=== PATIENT | male | born 1980 | race Caucasian/White ===

== ENCOUNTER 2017-09-07 15:03 | Emergency (ER) | payer MEDICAID, SELFPAY ==
[2017-09-07 16:33] VITALS: BP 167/93; PULSE 91; RESP 20; TEMP 36.7; O2SAT 98; BMI 41.3
--- NOTE | 2017-09-07 16:36 | HMH.EDUTC ---
[facility] [place] Clinical Impression: Viral upper respiratory tract infection with cough Disposition: Home, Self-Care Condition on Discharge: Good Instructions: DI for Viral Upper Respiratory Infection -- Adult Additional Instructions: * Monitor Temp. Tylenol and/or Ibuprofen as needed. ER if fever is no less than 101 despite alternating Tylenol and Ibuprofen * Encourage fluids, water, Gatorade, powerade, pedialyte if infant/toddler/or child * Warm salt water gargles for throat irritation *Warm fluids *Sore throat lozenges *Sleep elevated *humidifier or vaporizer Lots of rest Increase fluids, water, Gatorade, powerade Follow up IMMEDIATELY for new or worsening of symptoms OR no noticeable improvement over the next 48-72 hours. 911 immediately for any life threatening symptoms such as chest pain or difficulty breathing Prescriptions: Dextromethorphan Polistirex [Delsym] 10 ml PO Q12H PRN #200 bhaskar.er.12h PRN Reason: Cough Referrals: Rodrigue Yoder MD [Primary Care Provider] - Time of Disposition: 16:59 Medical Decision Making - Medical Records Medical records reviewed: Yes: I reviewed the patient's medical records. Vital Signs: 09/07/17 16:33 Temperature 98.1 F Temperature Source Temporal Artery Scan Pulse Rate [Right Brachial] 91 H Respiratory Rate 20 Blood Pressure [Right Arm] 167/93 Blood Pressure Mean [Right Arm] 117 Blood Pressure Source [Right Arm] Automatic Cuff Blood Pressure Position [Right Arm] Sitting 02 Sat by Pulse Oximetry 98 Oxygen Delivery Method Room Air - Lab Data Lab Results 09/07/17 16:46: Influenza Type A Ag Negative, Influenza Type B Ag Negative - Ricco Inquiry Pt receiving controlled substance: No Ricco was queried for this patient: No [facility] [place] - General Stated complaint: gever umanzor sore throat Mode of Arrival: Family Vehicle Source of Information: Patient Limitations: No Limitations Description of Symptoms (Recalled from Triage Doc. by RN): FEVER, COUGH, CONGESTION HEENT Symptoms (Recalled from RN notes): No Resp Symptoms (Recalled from RN notes): Yes (COUGH, CONGESTION) Skin Symptoms (Recalled from RN notes): No MS Symptoms (Recalled from RN notes): No Functional Status (Recalled from RN notes): NA - History of Present Illness Provider Complaint: Patient state that he has has fever, headaches, body aches and chills State that he has been exposed to the flu State that his daughter has been sick too and thinks they all may have the flu State that symptoms began yesterday and have continued to get worse - Related Data Previous Rx's Medication Instructions Recorded Dextromethorphan Polistirex 10 ml PO Q12H PRN #200 [email or web address].er.12h 09/07/17 [Delsym] Allergies Allergy/AdvReac Type Severity Reaction Status Date / Time codeine [CODEINE] Allergy Unknown -- Verified 09/07/17 15:18 Penicillins [PENICILLINS] Allergy Unknown -- Verified 09/07/17 15:18 - Worker's Comp Is this a Worker's Comp case?: No [facility] History I have reviewed the patient's past medical history: Yes - *Social History Smoking Status: Never smoker Alcohol Intake: current Alcohol Intake Frequency:: a few times a week - Psychiatric History Expresses thoughts of harming self/others: None Suicide Plan Description: No Plan ROS Obtained: Yes All systems reviewed & no additional complaints - Constitutional Constitutional: Reports chills, Reports fatigue, Reports fever(s) - ENT Ears, Nose, Mouth, and Throat: Reports sinus pain, Reports sore throat - Respiratory Respiratory: Yes cough Physical Exam - General General appearance: alert, in no apparent distress - ENT ENT exam: Present: normal exam, normal oropharynx, mucous membranes moist, TM's normal bilaterally, normal external ear exam - Respiratory Respiratory exam: Present: normal lung sounds bilaterally. Absent: respiratory distress - Cardiovascular Cardiovascular exam: Present: regular rate, normal rhythm. Absent: J
--- NOTE | 2017-09-07 16:41 | ED_ITS ---
[facility] [place] Clinical Impression: Viral upper respiratory tract infection with cough Disposition: Home, Self-Care Condition on Discharge: Good Instructions: DI for Viral Upper Respiratory Infection -- Adult Additional Instructions: * Monitor Temp. Tylenol and/or Ibuprofen as needed. ER if fever is no less than 101 despite alternating Tylenol and Ibuprofen * Encourage fluids, water, Gatorade, powerade, pedialyte if infant/toddler/or child * Warm salt water gargles for throat irritation *Warm fluids *Sore throat lozenges *Sleep elevated *humidifier or vaporizer Lots of rest Increase fluids, water, Gatorade, powerade Follow up IMMEDIATELY for new or worsening of symptoms OR no noticeable improvement over the next 48-72 hours. 911 immediately for any life threatening symptoms such as chest pain or difficulty breathing Prescriptions: Dextromethorphan Polistirex [Delsym] 10 ml PO Q12H PRN #200 bhaskar.er.12h PRN Reason: Cough Referrals: Rodrigue Yoder MD [Primary Care Provider] - Time of Disposition: 16:59 Medical Decision Making - Medical Records Medical records reviewed: Yes: I reviewed the patient's medical records. Vital Signs: 09/07/17 16:33 Temperature 98.1 F Temperature Source Temporal Artery Scan Pulse Rate [Right Brachial] 91 H Respiratory Rate 20 Blood Pressure [Right Arm] 167/93 Blood Pressure Mean [Right Arm] 117 Blood Pressure Source [Right Arm] Automatic Cuff Blood Pressure Position [Right Arm] Sitting 02 Sat by Pulse Oximetry 98 Oxygen Delivery Method Room Air - Lab Data Lab Results 09/07/17 16:46: Influenza Type A Ag Negative, Influenza Type B Ag Negative - Ricco Inquiry Pt receiving controlled substance: No Ricco was queried for this patient: No [facility] [place] - General Stated complaint: gever umanzor sore throat Mode of Arrival: Family Vehicle Source of Information: Patient Limitations: No Limitations Description of Symptoms (Recalled from Triage Doc. by RN): FEVER, COUGH, CONGESTION HEENT Symptoms (Recalled from RN notes): No Resp Symptoms (Recalled from RN notes): Yes (COUGH, CONGESTION) Skin Symptoms (Recalled from RN notes): No MS Symptoms (Recalled from RN notes): No Functional Status (Recalled from RN notes): NA - History of Present Illness Provider Complaint: Patient state that he has has fever, headaches, body aches and chills State that he has been exposed to the flu State that his daughter has been sick too and thinks they all may have the flu State that symptoms began yesterday and have continued to get worse - Related Data Previous Rx's Medication Instructions Recorded Dextromethorphan Polistirex 10 ml PO Q12H PRN #200 [email or web address].er.12h 09/07/17 [Delsym] Allergies Allergy/AdvReac Type Severity Reaction Status Date / Time codeine [CODEINE] Allergy Unknown -- Verified 09/07/17 15:18 Penicillins [PENICILLINS] Allergy Unknown -- Verified 09/07/17 15:18 - Worker's Comp Is this a Worker's Comp case?: No [facility] History I have reviewed the patient's past medical history: Yes - *Social History Smoking Status: Never smoker Alcohol Intake: current Alcohol Intake Frequency:: a few times a week - Psychiatric History Expresses thoughts of harming self/others: None Suicide Plan Description: No Plan ROS Obtained: Yes All systems reviewed & no additional complaints
[2017-09-07 16:48] LABS: UTC Influenza A Antigen Negative (Negative); UTC Influenza B Antigen Negative (Negative)
== END 2017-09-07 17:05 | disposition home or self-care (01) ==
PROVIDERS: Emergency Provider Nurse Practitioner; Family Provider Nurse Practitioner; PCP Family Medicine
DX: J06.9 Acute upper respiratory infection, unspecified (principal); R05 Cough; Z88.0 Allergy status to penicillin
CPT/HCPCS: 87804; 99201

== ENCOUNTER 2017-11-02 09:22 | Emergency (ER) | payer MEDICAID, SELFPAY ==
[2017-11-02 09:41] VITALS: BP 162/98; PULSE 89; RESP 20; TEMP 36.6; O2SAT 98; BMI 42.0
--- NOTE | 2017-11-02 09:47 | XR_ITS ---
XR chest 2V Ordering Physician: Mary Cardenas Patient Age: 37 years: Male HISTORY: ITS.REASON: swollen lymp node Swollen lymph glands. TECHNIQUE: PA and lateral chest COMPARISON :PA and lateral chest from October 2016 & May 2017. FINDINGS The lungs are well expanded and clear with no active disease. . The samantha and mediastinal structures satisfactory. The heart upper normal in size borderline cardiomegaly. Normal pulmonary vascularity. No pleural effusion. No pneumothorax. Chest wall and T-spine satisfactory. IMPRESSION: Stable chest nothing definitely acute
--- NOTE | 2017-11-02 09:47 | XR_ITS ---
XR soft tissue neck Ordering Physician: Mary Cardenas Patient Age: 37 years: Male HISTORY: ITS.REASON: swollen lymp node Swollen lymph nodes TECHNIQUE: AP and lateral soft tissue neck COMPARISON :None of neck CT chest and 2017 onlyPartially images neck FINDINGS The cervical vertebral bodies appear intact. Normal alignment of the C-spine. Prevertebral soft tissues appear normal. Borderline narrowing at the C2/3 disc space. There is suggestion of some scant posterior hypertrophic ridging possibly developing at C4/5 negligible. There is suggestion of generous soft tissue density at the anterior neck, suprahyoid region & beneath the mandible. Suspect be generous tonsils contribute to this plain film density. Plain film provides only gross overview in this regard. No adenoidal hypertrophy The epiglottis appears normal. Retropharyngeal soft tissues normal No abnormal foreign bodies neck evident.. Apices the lungs clear. If adenopathy at the neck or elsewhere should persist or increase CT with contrast study would be suggested to further evaluate -------- IMPRESSION: Epiglottis appears normal. Retropharyngeal soft tissues normal. Enlarged tonsils may in part contribute to the generous density suprahyoid region. If adenopathy should persist or progress consider CT neck with contrast to more optimally evaluate C-spine intact
--- NOTE | 2017-11-02 09:50 | HMH.EDUTC ---
[facility] [place] Clinical Impression: Swollen lymph nodes Disposition: Home, Self-Care Condition on Discharge: Good Instructions: DI for Skin Abscess Additional Instructions: Increase fluids Rest Antibiotics as ordered Follow-up with primary care for further workup If symptoms worsen or do not improve return or be seen in the ER Prescriptions: cephALEXin [Keflex 500mg Cap] 500 mg PO BID 10 Days #20 cap Referrals: Rodrigue Yoder MD [Primary Care Provider] - Time of Disposition: 11:05 (pt states has taken keflex in past and tolerated well) Medical Decision Making Vital Signs: 11/02/17 09:41 Temperature 98 F Temperature Source Temporal Artery Scan Pulse Rate [Brachial] 89 Respiratory Rate 20 Blood Pressure [Right Arm] 162/98 Blood Pressure Mean [Right Arm] 119 Blood Pressure Source [Right Arm] Automatic Cuff Blood Pressure Position [Right Arm] Sitting 02 Sat by Pulse Oximetry 98 Oxygen Delivery Method Room Air - Lab Data Lab Results 11/02/17 10:26: WBC 7.9, RBC 5.26, Hgb 15.5, Hct 44.9, MCV 85.4, MCH 29.4, MCHC 34.5, RDW 12.5, Plt Count 205, MPV 7.9, Neut % (Auto) 73.4, Lymph % (Auto) 21.7, Seneca % (Auto) 2.7, Eos % (Auto) 1.9, Baso % (Auto) 0.3, Neut # (Auto) 5.8, Lymph # (Auto) 1.7, Seneca # (Auto) 0.2, Eos # (Auto) 0.2, Baso # (Auto) 0.0 11/02/17 10:26: Sodium 141, Potassium 3.7, Chloride 103, Carbon Dioxide 30, Anion Gap 11.7, BUN 9, Creatinine 1.05, Estimated Creat Clear 119, Estimated GFR 80, Est GFR ( Amer) 97, Glucose 204 H, Calcium 8.7, Total Bilirubin 0.3, AST 24, ALT 72, Alkaline Phosphatase 92, Total Protein 7.7, Albumin 3.6, Globulin 4.1 H, Albumin/Globulin Ratio 0.9 L Result diagrams: 11/02/17 10:26 11/02/17 10:26 Orders (Tests/Meds): ORDERS Category Date Time Status XR chest 2V Stat Exams 11/02/17 09:47 Taken XR soft tissue neck Stat Exams 11/02/17 09:47 Taken - Ricco Inquiry Pt receiving controlled substance: No [facility] [place] - General Chief complaint: Skin/Abscess/Foreign Body Stated complaint: knot in neck burning Time Seen by Provider: 11/02/17 09:51 Mode of Arrival: Ambulatory Source of Information: Patient Limitations: No Limitations Description of Symptoms (Recalled from Triage Doc. by RN): COMPLAINS OF LUMP IN NECK WITH PAIN AND BURNNG X 2 DAYS HEENT Symptoms (Recalled from RN notes): No Resp Symptoms (Recalled from RN notes): No Skin Symptoms (Recalled from RN notes): No MS Symptoms (Recalled from RN notes): No Functional Status (Recalled from RN notes): NA - History of Present Illness Provider Complaint: 37-year-old male presents today for swollen lymph no on the left lower neck ?2 weeks. Patient states he does not notice it much during the day but at night he has been noticing a burning. Denies sore throat or ear pain. Patient does smoke a cigar once in a while. No family history patient reports being adopted Onset (ago): week(s) Location: neck - Related Data Home Medications Medication Instructions Recorded Confirmed Amlodipine/Atorvastatin 1 each PO DAILY 11/02/17 11/02/17 [Amlodipine-Atorvast 10-10 mg] Losartan/Hydrochlorothiazide 1 each PO DAILY 11/02/17 11/02/17 [Losartan-Hctz 100-12.5 mg Tab] Previous Rx's Medication Instructions Recorded Dextromethorphan Polistirex 10 ml PO Q12H PRN #200 bhaskar.er.12h 09/07/17 [Delsym] cephALEXin [Keflex 500mg Cap] 500 mg PO BID 10 Days #20 cap 11/02/17 Allergies Allergy/AdvReac Type Severity Reaction Status Date / Time codeine [CODEINE] Allergy Unknown -- Verified 09/07/17 15:18 Penicillins [PENICILLINS] Allergy Unknown -- Verified 09/07/17 15:18 - Worker's Comp Is this a Worker's Comp case?: No [facility] History - Social History Smoking Status: Never smoker Alcohol Intake: never Alcohol Intake Frequency:: a few times a week - Psychiatric History Expresses thoughts of harming self/others: None Suicide Plan Description: No Plan ROS Obtained: Yes All systems reviewed
[2017-11-02 10:39] LABS: Basophils % 0.3 % (0.1-2.0); Eosinophils # 0.2 K/mm3 (0.0-0.4); Eosinophils % 1.9 % (0.1-12.0); Hematocrit 44.9 % (42.0-52.0); Hemoglobin 15.5 g/dL (14.1-18.0); Lymphocytes # 1.7 K/mm3 (0.7-4.5); Lymphocytes % 21.7 K/mm3 (10-50); Mean Corpuscular HGB Conc 34.5 g/dL (31.8-35.4); Mean Corpuscular Hemoglobin 29.4 pg (27.0-31.2); Mean Corpuscular Volume 85.4 fl (80-94); Mean Platelet Volume 7.9 fl (7.4-10.4); Monocytes # 0.2 K/mm3 (0.1-1.0); Monocytes % 2.7 % (1.7-9.3); Neutrophils # 5.8 K/mm3 (1.8-7.8); Neutrophils % 73.4 % (37.0-80.0); Platelet Count 205 K/mm3 (142-424); Red Blood Count 5.26 M/mm3 (4.60-6.20); Red Cell Distribution Width 12.5 % (11.5-17.5); White Blood Count 7.9 K/mm3 (4.8-10.8)
[2017-11-02 10:50] LABS: Alanine Aminotransferase 72 U/L (12-78); Albumin Level 3.6 gm/dL (3.4-5.0); Albumin/Globulin Ratio 0.9 (1.1-1.8); Alkaline Phosphatase 92 U/L (46-116); Anion Gap 11.7 mEq/L (5-15); Aspartate Amino Transferase 24 U/L (15-37); Bilirubin,Total 0.3 mg/dL (0.2-1.0); Blood Urea Nitrogen 9 mg/dL (7-18); Calcium 8.7 mg/dL (8.5-10.1); Carbon Dioxide 30 mmol/L (21.0-32.0); Chloride 103 mmol/L (98-107); Creatinine Clearance Estimated 119 mL/min (0-300); Creatinine,Serum 1.05 mg/dL (0.70-1.30); Estimated Glomerular Filt Rate 80 ml/min (>60); GFR (African American) 97 ML/MIN (>60); Globulin 4.1 gm/dl (1.3-3.2); Glucose 204 mg/dL (74-106); Potassium 3.7 mmoL/L (3.5-5.1); Sodium 141 mmol/L (136-145); Total Protein,Serum 7.7 gm/dL (6.4-8.2)
[2017-11-02 11:09] VITALS: BP 162/98; PULSE 89; RESP 20; TEMP 36.6; O2SAT 98
== END 2017-11-02 11:10 | disposition home or self-care (01) ==
PROVIDERS: Emergency Provider Nurse Practitioner Family; Family Provider Nurse Practitioner; PCP Family Medicine
DX: J06.9 Acute upper respiratory infection, unspecified (principal); Z88.0 Allergy status to penicillin; Z88.6 Allergy status to analgesic agent
CPT/HCPCS: 36415; 70360; 71046; 80053; 85025; 99203

== ENCOUNTER → 2017-11-24 13:20 | Outpatient (CLI) | payer MEDICAID, SELFPAY ==
--- NOTE | 2017-11-24 13:25 | CT_ITS ---
CT soft tissue neck wo con COMPARISON: Soft tissue views of neck 11/02/2017 HISTORY: Possible lump left side of lower neck TECHNIQUE: Multiaxial scans obtained from the base of skull to the upper chest were performed without IV contrast. A BB was placed at the site of possible lump. FINDINGS: The parotid glands are normal and symmetrical bilaterally. The submandibular glands appear normal. There are couple normal-sized nodes in the jugulodigastric chain bilaterally. There is some minimal infiltrate and/or redundancy of the skin at the site of the metallic be be marker and there is a possible focal area of thickening of the skin suggesting minimal scarring from possible previous trauma. There is no soft tissue mass or fluid collection. The sternocleidomastoid muscles are normal symmetrical bilaterally. The mandibles grossly normal. There is straightening of the normal curvature of the cervical spine. C1-C7 appear intact. There is no significant disc space narrowing and there is no degenerative change. IMPRESSION: Essentially unremarkable study the questionable focal area of skin thickening base of the be due to redundant skin at this site as the patient is somewhat obese.
== END ==
PROVIDERS: Family Provider Nurse Practitioner; PCP Family Medicine; Visit Provider Nurse Practitioner
DX: R22.1 Localized swelling, mass and lump, neck (principal)
CPT/HCPCS: 70490

== ENCOUNTER 2018-10-20 09:00 | Outpatient (RCR) | payer MEDICAID, SELFPAY ==
--- NOTE | 2018-09-03 14:38 | HMH.OTOPEV ---
OT Inpatient Evaluation Rehab OT Outpatient Eval Start: 09/03/18 14:11 Freq: Status: Active Protocol: Document 09/03/18 14:12 RMARSHALCherelle (Rec: 09/03/18 14:38 [facility] [id number]) Electronically Signed By Kenton Gunderson OT 09/03/18 14:12 Outpatient Therapy Subjective History Subjective History Pt is a 38 year old male who reports to therapy for initial evaluation to [facility]. Pt reports he had a stroke in the right basal ganlia of the brain on 07/26/18. 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 Pt felt himself drooling and noticed he was having slurred speach; family members immediately called 911 . Pt was taken to [facility] and then transferred to . He spent 1 week at before being transferred to [facility]. He was at [facility] for 2 week for stroke rehab before returning home. Pt explains he has always had severely high blood pressure issues and was not consistent about taking his medication daily. He also reports he has a stressful job and normally goes on no sleep often. Pt believes due to these reasons he had a stroke. Pt's speech, swallowing, and facial droop has resovled completely. Pt does have full AROM at left UE but he is slightly weak at the shoulder, wrist, and hand. Pt also demonstrates with a decline in fine motor coordination after completing the 9 hole peg test. Pt will continue to be seen 2-3x's a week in order to improve UE strengthening and endurance; as well as address fine motor deficits. 9 hole peg test Current: Right: 26 seconds
--- NOTE | 2018-10-06 09:58 | HMH.RHREAS ---
Rehab Reassessment Rehab OP Re-assessment Start: 10/06/18 08:19 Freq: Status: Active Protocol: Document 10/06/18 08:20 RMPALHALL (Rec: 10/06/18 08:34 RMARSHALL [id number]) Electronically Signed By Kenton Gunderson OT 10/06/18 08:20 Rehab Re-assessment Objective Objective Notes Patient continues to be seen three times a week in order to address UE strengthening for left sided weakness from stroke. Pt also continues to engage in left hand fine motor activities to improve on fine motor coordination. All exercises are listed below that patient engages in each session: UE ergo: 5 minutes forward, 5 minutes backward 3.0 resistance High Row Tuff Stuff: 30 reps, 2 set 70# Mid Row Tuff Stuff: 30 reps, 2 set 70# Extension Tuff Stuff: 30 reps, 2 set 60# Bicep Curls: 15# 20 reps, 2 set Tricep Extension Tuff Stuff: 150# 25 reps, 2 set Prone Row Bilateral: 20# 25 reps, 2 set Lat pull down Tuff Stuff: 20 reps, 2 sets 110# Shoulder matrix: 10 reps, 2 set 4# Shoulder Press: 10 reps, 3 set 60# Chest Press: 10 reps, 3 set ABC's on wall with ball: 2 set A's, T's, Y's on ball: 10 reps , 1 set Black Gripper: 25 reps, 2 set strongest pound Black Digi Flex: 25 reps, 2 set Black Clothes Pin: 20 reps, 1 set with each finger Green Digi-electronic science teacher: 25 reps, 2 set Small peg board on Bosu Assessment Progress Assessment Progressing as Expected Assessment Notes Pt has demonstrated improvement in strength and
== END 2018-10-20 09:25 | disposition home or self-care (01) ==
LOC: OT 09:00
PROVIDERS: Visit Provider Internal Medicine Adolescent Medicine
DX: I63.9 Cerebral infarction, unspecified (principal); I69.354 Hemiplegia and hemiparesis following cerebral infarction affecting left non-dominant side
CPT/HCPCS: 97110; 97112; 97164; 97166

== ENCOUNTER 2018-10-27 08:30 | Outpatient (RCR) | payer MEDICAID, SELFPAY ==
--- NOTE | 2018-09-02 11:12 | HMH.PTOPEV ---
PT Outpatient Evaluation Rehab PT Outpatient Evaluation Start: 09/02/18 10:44 Freq: Status: Active Protocol: Document 09/02/18 10:44 RHETTCONCHIS (Rec: 09/02/18 11:11 JAROD [id number]) Electronically Signed By Bong Queen, PT 09/02/18 10:44 Outpatient Therapy Subjective History Subjective History Patient is a 38 year old male presenting to outpatient PT with reports of LLE/LUE weakness and loss of coordination S/P CVA on . He was initially transported to [facility] and then transferred to [facility] where he received skilled therapy services 3x/day. He has most recently been treated by home health PT services but was unhappy with frequenc and duration of treatment performed. Pt reports that [place] when he began to feel a L sided facial droop and decreased motor function of LLE. Pt reports hx of HTN and high cholesterol. Main complaint today is L hip pain and gait abnormalities. Initial gait seems mildly labored with L hip circumduction starting after walking for approx 5 min. 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
--- NOTE | 2018-10-06 09:18 | HMH.RHREAS ---
Rehab Reassessment Rehab OP Re-assessment Start: 10/06/18 09:05 Freq: Status: Active Protocol: Document 10/06/18 09:06 JAROD (Rec: 10/06/18 09:15 JAROD [id number]) Electronically Signed By Bong Queen, PT 10/06/18 09:06 Rehab Re-assessment Subjective Subjective Pt reports, I'm feeling much better. My balance has improved. My strength is getting better. I just feel like I don't have the endurance to do everything I need to do. Objective Objective Notes MMT: R WNL throughout; L WNL throughout except for hip abd 4+/5, ext 4+/5, IR/ER 4+/5; ankle INV/EV 4+/5 SLS: 10s L and R Pain: pt complains of mid thoracic spine pain 5/10 at worst. Neuro: LLE sho scale 1/4 TUG: WNL Tinnetti: WNL Assessment Progress Assessment Progressing as Expected Assessment Notes Pt has tolerated Rx very well. Rx has consisted mainly of LLE strengthening and proprioceptive training. Main concern is LLE endurance and strength with return to work related activities. Work related activities include prolonged periods of climbing/ lifting/standing. Pt would benefit from continuing with skilled PT services in order to reduce saftey risks with return to work related activity. Patient goals met STG's Goals Not Met LTG's Revised Goals NA Plan Plan NA Frequency of Therapy 2x/week Duration of therapy 3 weeks Time and Billing Re-Eval Time 15 Re-Eval Billing Units 1 PHYSICIAN CERTIFICATION: I certify the specified therapy services for Fidel Xie are required, authorized, and reviewed every 30 days.
== END 2018-10-27 08:35 | disposition home or self-care (01) ==
LOC: PT 08:30
PROVIDERS: Visit Provider Internal Medicine Adolescent Medicine
DX: I63.9 Cerebral infarction, unspecified (principal); I69.354 Hemiplegia and hemiparesis following cerebral infarction affecting left non-dominant side
CPT/HCPCS: 97110; 97112; 97116; 97163; 97164

== ENCOUNTER → 2018-12-01 09:22 | Outpatient (CLI) | payer MEDICAID, SELFPAY ==
[2018-12-01 10:23] LABS: Basophils % 0.3 % (0.1-2.0); Eosinophils # 0.1 K/mm3 (0.0-0.4); Hematocrit 40.8 % (42.0-52.0); Hemoglobin 14.2 g/dL (14.1-18.0); Lymphocytes # 1.9 K/mm3 (0.7-4.5); Lymphocytes % 27.1 % (10-50); Mean Corpuscular HGB Conc 34.8 g/dL (31.8-35.4); Mean Corpuscular Hemoglobin 28.4 pg (27.0-31.2); Mean Corpuscular Volume 81.6 fl (80-94); Mean Platelet Volume 8.2 fl (7.4-10.4); Monocytes # 0.3 K/mm3 (0.1-1.0); Monocytes % 3.6 % (1.7-9.3); Neutrophils # 4.7 K/mm3 (1.8-7.8); Platelet Count 168 K/mm3 (142-424); White Blood Count 6.9 K/mm3 (4.8-10.8)
[2018-12-01 11:04] LABS: Alanine Aminotransferase 29 U/L (12-78); Albumin/Globulin Ratio 1.2 (1.1-1.8); Alkaline Phosphatase 89 U/L (46-116); Anion Gap 16.1 mEq/L (5-15); Aspartate Amino Transferase 17 U/L (15-37); Bilirubin,Total 0.6 mg/dL (0.2-1.0); Blood Urea Nitrogen 12 mg/dL (7-18); Calcium 8.8 mg/dL (8.5-10.1); Carbon Dioxide 25 mmol/L (21.0-32.0); Chloride 104 mmol/L (98-107); Chol/HDL Ratio 2.4 (1-3.5); Cholesterol 117 mg/dL (140-200); Creatinine,Serum 0.77 mg/dL (0.70-1.30); Estimated Glomerular Filt Rate 114 ml/min (>60); GFR (African American) 138 ML/MIN (>60); Globulin 3.4 gm/dl (1.3-3.2); Glucose 86 mg/dL (74-106); HDL Cholesterol 49 mg/dL (27-67); LDL Cholesterol 59 mg/dL (0-130); Potassium 4.1 mmoL/L (3.5-5.1); Sodium 141 mmol/L (136-145); Total Protein,Serum 7.4 gm/dL (6.4-8.2); Triglycerides 45 mg/dL (30-200); VLDL Cholesterol 9 mg/dL (0-40)
[2018-12-02 10:03] LABS: Vitamin D 25 Hydroxy 27.3 ng/mL (30.0-100.0)
[2018-12-03 18:29] LABS: Vitamin B12 294 pg/mL (232-1245)
== END ==
PROVIDERS: PCP Internal Medicine Adolescent Medicine; Visit Provider Internal Medicine Adolescent Medicine
DX: I63.9 Cerebral infarction, unspecified (principal); I10 Essential (primary) hypertension; R53.83 Other fatigue; E55.9 Vitamin D deficiency, unspecified
CPT/HCPCS: 36415; 80053; 80061; 82607; 82652; 85025

== ENCOUNTER → 2019-11-23 15:23 | Outpatient (CLI) | payer OTHER, SELFPAY ==
--- NOTE | 2019-11-23 15:31 | XR_ITS ---
PROCEDURE: XR KNEE RT 3V CLINICAL INDICATION: ACUTE PAIN OF RIGHT KNEE COMPARISON: KNEE3L KNEE-3 VIEWS-LT from 07/18/2014 FINDINGS: No fracture or dislocation. No lytic or blastic change. There is normal mineralization. There is mild patellofemoral and medial compartment osteoarthritis with loss of cartilaginous joint spaces. Other findings:Enthesopathy of the anterior superior aspect of the patella is noted. IMPRESSION: Degenerative findings. No acute findings. Dictated by: Farhad Salter 11/23/2019 15:50 Electronically signed by Farhad Saletr in [place] 11/23/2019 15:50
== END ==
PROVIDERS: PCP Internal Medicine Adolescent Medicine; Visit Provider Internal Medicine Adolescent Medicine
DX: M25.561 Pain in right knee (principal)
CPT/HCPCS: 73562

== ENCOUNTER → 2019-12-07 11:06 | Outpatient (CLI) | payer OTHER, SELFPAY ==
--- NOTE | 2019-12-07 11:16 | MR_ITS ---
PROCEDURE: MR KNEE RT WO CON CLINICAL INDICATION: ACUTE PAIN OF RT KNEE Right knee pain for 2 months. Medial knee pain COMPARISON: XR KNEE RT 3V from 11/23/2019 TECHNIQUE: Routine multiplanar multi echo sequences are performed without gadolinium enhancement. FINDINGS: The cruciate ligaments, lateral ligament complex, patellar tendon, and quadriceps tendon have an unremarkable appearance. There is some increased T2 signal involving the distal aspect of the medial collateral ligament posteriorly suggesting mild sprain of the MCL. There is a horizontal tear of the posterior horn of the medial meniscus. The patellar cartilage is preserved. There is a small knee joint effusion with a small popliteal fossa cyst at 15 mm. No fracture or dislocation. No bone bruises. IMPRESSION: 1. Horizontal tear of the posterior horn of the medial meniscus. 2. Sprain of the MCL 3. Small knee joint effusion and small popliteal fossa cyst Dictated by: Alfonso Dolan MD 12/08/2019 16:27 Electronically signed by Alfonso Dolan MD in [place] 12/08/2019 16:27
== END ==
PROVIDERS: PCP Internal Medicine Adolescent Medicine; Visit Provider Internal Medicine Adolescent Medicine
DX: M25.561 Pain in right knee (principal)
CPT/HCPCS: 73721

== ENCOUNTER → 2019-12-30 09:52 | Outpatient (CLI) | payer OTHER, SELFPAY ==
--- NOTE | 2019-12-30 09:56 | XR_ITS ---
PROCEDURE: XR KNEE RT 4V CLINICAL INDICATION: knee pain COMPARISON: KNEE3L KNEE-3 VIEWS-LT from 07/18/2014 XR KNEE RT 3V from 11/23/2019 FINDINGS: No fracture or dislocation. No lytic or blastic change. There is normal mineralization. Minimal osteoarthritic changes are present involving the medial compartment and patellofemoral joint. There is minimal spurring along the intercondylar region of the femur and tibial spine area. Other findings:None. IMPRESSION: Minimal osteoarthritic change otherwise negative Dictated by: Alfonso Dolan MD 12/30/2019 10:55 Electronically signed by Alfonso Dolan MD in [place] 12/30/2019 10:55
== END ==
PROVIDERS: PCP Internal Medicine Adolescent Medicine; Visit Provider Orthopaedic Surgery
DX: M25.561 Pain in right knee (principal)
CPT/HCPCS: 73564

== ENCOUNTER 2019-12-30 12:04 | Outpatient (RCR) | payer OTHER, SELFPAY | END 2019-12-30 12:45 | disposition home or self-care (01) | LOC: PT 12:04 | PROVIDERS: Visit Provider Orthopaedic Surgery | DX: M15.0 Primary generalized (osteo)arthritis (principal) | CPT/HCPCS: 97760 ==

== ENCOUNTER 2020-01-18 02:55 | Emergency (ER) | payer OTHER, SELFPAY ==
--- NOTE | 2020-01-18 02:59 | CT_ITS ---
PROCEDURE: CT HEAD/BRAIN WO CON CLINICAL INDICATION: r/o stroke Left face and arm numbness COMPARISON: No exams were available for comparison TECHNIQUE: Axial images obtained. All CT scans at the facility use one or more dose reduction, viz: automated exposure control, ma/kV adjustment per patient size (including targeted exams where dose is matched to indication, i.e. head), or iterative reconstruction technique. FINDINGS: No midline shift, mass effect, intracranial hemorrhage, hydrocephalus, or extra-axial fluid collection is evident. There is an old lacunar infarction of the right basal ganglia the calvarium has an unremarkable appearance. No mastoid effusion. No sinus air-fluid level. IMPRESSION: No acute finding. Old right basal ganglia lacunar infarction Dictated by: Alfonso Dolan MD 01/18/2020 09:16 Electronically signed by Alfonso Dolan MD in [place] 01/18/2020 09:16
--- NOTE | 2020-01-18 03:01 | ECG_ITS ---
APPROVED REPORT Exam: Resting ECG HR:67 bpm ECG Measurements Heart Rate 67 AXES TX 200 P 37 QRSd 100 QRS 41 QT 442 T 36 QTc 467 <Conclusion> Normal sinus rhythm,First Degree AV Block Otherwise a Normal ECG Electronically signed by : Kee Hebert, 01/18/2020 10:51:13
[2020-01-18 03:08] VITALS: BP 180/112; PULSE 76; RESP 16; TEMP 36.4; O2SAT 96; BMI 45.0
[2020-01-18 03:16] LABS: Basophils # 0.1 K/mm3 (0-0.2); Basophils % 0.6 % (0.1-2.0); Eosinophils # 0.1 K/mm3 (0.0-0.4); Eosinophils % 1.1 % (0.1-12.0); Mean Corpuscular HGB Conc 35.8 g/dL (31.8-35.4); Mean Corpuscular Hemoglobin 30.4 pg (27.0-31.2); Mean Platelet Volume 8.3 fl (7.4-10.4); Monocytes # 0.4 K/mm3 (0.1-1.0); Monocytes % 3.8 % (1.7-9.3); Neutrophils # 5.9 K/mm3 (1.8-7.8); Neutrophils % 62.4 % (37.0-80.0); Platelet Count 174 K/mm3 (142-424); Red Blood Count 4.94 M/mm3 (4.60-6.20); Red Cell Distribution Width 13.8 % (11.5-17.5); White Blood Count 9.4 K/mm3 (4.8-10.8)
[2020-01-18 03:19] LABS: Chloride 103 mmol/L (98-107); Potassium 3.5 mmoL/L (3.5-5.1); Sodium 139 mmol/L (136-145)
[2020-01-18 03:22] LABS: Anion Gap 9.5 mEq/L (5-15); Blood Urea Nitrogen 18 mg/dl (9-20); Calcium 9.6 mg/dl (8.4-10.2); Carbon Dioxide 30 mmol/L (22.0-30.0); Creatinine Clearance Estimated 137 mL/min (50-200); Estimated Glomerular Filt Rate 94 ml/min (>60); GFR (African American) 114 ML/MIN (>60); Glucose 121 mg/dl (74-100)
--- NOTE | 2020-01-18 03:33 | HMH.EDWEAK ---
ED Disposition Clinical Impression: Upper extremity dysfunction, History of CVA (cerebrovascular accident) Disposition: Home, Self-Care Condition on Discharge: Good Instructions: DI for Muscle Weakness, DI for Stroke-Ischemic Referrals: Huan Patel MD [Primary Care Provider] - - Critical Care Critical Care Time: No Attestation: On 01/18/20, the high probability of a clinically significant, sudden or life threatening deterioration of the following system(s) required my full and direct attention, intervention and personal management. The time I documented below is in addition to time spent performing reported procedures but includes the following listed in this critical care notation. Medical Decision Making - Medical Records Medical records reviewed: Yes: I reviewed the patient's medical records. - Ricco Inquiry Pt receiving controlled substance: No Vital Signs: 01/18/20 03:08 01/18/20 03:42 Temperature 97.6 F Temperature Source Oral Pulse Rate [Right Brachial] 76 70 Respiratory Rate 16 Blood Pressure [Right Arm] 180/112 H 154/81 H Blood Pressure Mean [Right Arm] 134 105 Blood Pressure Source [Right Arm] Automatic Cuff Automatic Cuff Blood Pressure Position [Right Arm] Sitting Sitting 02 Sat by Pulse Oximetry 96 97 Oxygen Delivery Method Room Air Room Air - Lab Data Lab results reviewed: Yes: I reviewed the patient's lab results. Lab Results 01/18/20 03:00: WBC 9.4, RBC 4.94, Hgb 15.0, Hct 42.0, MCV 85.0, MCH 30.4, MCHC 35.8 H, RDW 13.8, Plt Count 174, MPV 8.3, Neut % (Auto) 62.4, Lymph % (Auto) 32.0, Stone % (Auto) 3.8, Eos % (Auto) 1.1, Baso % (Auto) 0.6, Neut # (Auto) 5.9, Lymph # (Auto) 3.0, [place] # (Auto) 0.4, Eos # (Auto) 0.1, Baso # (Auto) 0.1 01/18/20 03:00: Sodium 139, Potassium 3.5, Chloride 103, Carbon Dioxide 30, Anion Gap 9.5, BUN 18, Creatinine 0.90, Estimated Creat Clear 137, Estimated GFR 94, Est GFR ( Amer) 114, Glucose 121 H, Calcium 9.6, Troponin I < 0.01 Result diagrams: 01/18/20 03:00 01/18/20 03:00 Orders (Tests/Meds): ORDERS Category Date Time Status CT head/brain wo con Stat Cat Scan 01/18/20 02:59 Taken Troponin I Q3H Lab 01/18/20 06:15 Ordered Troponin I Q3H Lab 01/18/20 09:15 Ordered - CT Data CT Scan: Head Time Received: 03:[address] Reviewed: Yes: I have viewed the radiologist's interpretation Preliminary Findings: Normal/NAD - ECG Data Tracing #1 Normal Sinus Rhythm: Yes Ischemic changes: non-specific ST-T wave changes - Reevaluation(s) Time: 03:53 Reevaluation #1: improved Weakness HPI - General Chief complaint: Weakness Stated complaint: pain in L hand tingling in left side of mouth Time Seen by Provider: 01/18/20 03:15 Mode of Arrival: Ambulatory Source of Information: Patient, Medical Record Limitations: No Limitations Description of Symptoms (Recalled from ER Triage Doc. by RN): Patient reports he woke up with left hand numbness about 0230 and felt like the the left side of his lip felt weird. Patient reports he had a previous stroke a year and a half. Patient reports he could have just been sleeping wrong on his arm and that he may just have anxiety because of his previous stroke hx but wanted to some be evaluated to be safe. Patient had no hand numbness or mouth deficits when he arrived. - History of Present Illness HPI Narrative: awoke with pain and drawing of lt upper ext with tingling to lt side of mouth - no speech or visual loss and better now - had prev cva- MD Complaint: focal weakness, tingling Onset (ago): hour(s) Duration: now resolved Location: LUE Migration: none Severity: mild Quality: tingling Relieving factors: none Associated symptoms: denies other symptoms - Related Data Home Medications Medication Instructions Recorded Confirmed aspirin 81 mg tablet,delayed 81 mg PO DAILY 09/23/18 01/18/20 release atorvastatin 40 mg tablet 40 mg PO DAILY 09/23/18 01/18/20 fluoxetine 20 mg caps
[2020-01-18 03:42] VITALS: BP 154/81; PULSE 70; O2SAT 97
[2020-01-18 03:43] LABS: Troponin I < 0.01 ng/ml (0.00-0.034)
[2020-01-18 04:18] VITALS: BP 148/80; PULSE 72; RESP 16; TEMP 36.4; O2SAT 97
== END 2020-01-18 04:20 | disposition home or self-care (01) ==
PROVIDERS: Emergency Provider Emergency Medicine; PCP Internal Medicine Adolescent Medicine
DX: R20.2 Paresthesia of skin (principal); R29.898 Other symptoms and signs involving the musculoskeletal system; Z86.73 Personal history of transient ischemic attack (TIA), and cerebral infarction without residual deficits; I10 Essential (primary) hypertension; Z87.891 Personal history of nicotine dependence; Z79.899 Other long term (current) drug therapy; Z88.0 Allergy status to penicillin; Z88.5 Allergy status to narcotic agent
CPT/HCPCS: 70450; 80048; 84484; 85025; 93005; 99283

== ENCOUNTER 2020-01-24 08:00 | Outpatient (RCR) | payer OTHER, SELFPAY | END 2020-01-24 08:05 | disposition home or self-care (01) | LOC: PT 08:00 | PROVIDERS: PCP Internal Medicine Adolescent Medicine; Visit Provider Internal Medicine Adolescent Medicine | DX: M54.5 Low back pain (principal); M25.561 Pain in right knee | CPT/HCPCS: 97010; 97014; 97016; 97033; 97035; 97110; 97163; 97164; G0283 ==

== ENCOUNTER → 2020-10-27 12:35 | Outpatient (CLI) | payer OTHER, SELFPAY ==
[2020-10-27 13:51] LABS: Adenovirus,PCR Not Detected (NotDetected); Bordetella Pertussis Not Detected (NotDetected); Chlamydophila Pneumoniae, PCR Not Detected (NotDetected); Coronavirus 19, PCR Not Detected (NotDetected); Coronavirus 229E Not Detected (NotDetected); Coronavirus NL63 Not Detected (NotDetected); Coronavirus OC43 Not Detected (NotDetected); Coronovirus HKU1,PCR Not Detected (NotDetected); Human Metapneumovirus Not Detected (NotDetected); Influenza A, PCR Not Detected (NotDetected); Influenza AH1, 2009 Not Detected (NotDetected); Influenza AH1, PCR Not Detected (NotDetected); Influenza AH3,PCR Not Detected (NotDetected); Influenza B, PCR Not Detected (NotDetected); Mycoplasma Pneumoniae, PCR Not Detected (NotDetected); Parainfluenza 1, PCR Not Detected (NotDetected); Parainfluenza 2, PCR Not Detected (NotDetected); Parainfluenza 3, PCR Not Detected (NotDetected); Parainfluenza 4, PCR Not Detected (NotDetected); Respiratory Syncytial Virus Not Detected (NotDetected)
[2020-10-27 15:08] LABS: Rhinovirus/Enterovirus Detected (NotDetected)
== END ==
PROVIDERS: PCP Internal Medicine Adolescent Medicine; Visit Provider Nurse Practitioner Family
DX: Z20.822 Contact with and (suspected) exposure to COVID-19 (principal); R50.9 Fever, unspecified; B34.1 Enterovirus infection, unspecified
CPT/HCPCS: 87581; 87633; 87798

== ENCOUNTER → 2020-10-29 11:54 | Outpatient (CLI) | payer OTHER, SELFPAY ==
[2020-10-29 12:38] LABS: Basophils # 0.1 K/mm3 (0-0.2); Basophils % 0.5 % (0.1-2.0); Eosinophils # 0.1 K/mm3 (0.0-0.4); Eosinophils % 1.4 % (0.1-12.0); Hemoglobin 15.4 g/dL (14.1-18.0); Lymphocytes # 1.9 K/mm3 (0.7-4.5); Lymphocytes % 23.1 % (10-50); Mean Corpuscular HGB Conc 34.2 g/dL (31.8-35.4); Mean Corpuscular Volume 84.9 fl (80-94); Mean Platelet Volume 8.9 fl (7.4-10.4); Monocytes # 0.3 K/mm3 (0.1-1.0); Monocytes % 3.6 % (1.7-9.3); Neutrophils % 71.4 % (37.0-80.0); Platelet Count 170 K/mm3 (142-424); Red Cell Distribution Width 13.5 % (11.5-17.5); White Blood Count 8.4 K/mm3 (4.8-10.8)
[2020-10-29 12:50] LABS: Alanine Aminotransferase 37 U/L (12-78); Albumin Level 4.4 g/dl (3.5-5.0); Albumin/Globulin Ratio 1.5 (1.1-1.8); Alkaline Phosphatase 87 U/L (38-126); Aspartate Amino Transferase 28 U/L (17-59); Bilirubin,Total 0.7 mg/dl (0.2-1.3); Blood Urea Nitrogen 13 mg/dl (9-20); Calcium 9.7 mg/dl (8.4-10.2); Carbon Dioxide 28 mmol/L (22.0-30.0); Chloride 102 mmol/L (98-107); Chol/HDL Ratio 2.6 (1-3.5); Cholesterol 149 mg/dl (140-200); Estimated Glomerular Filt Rate 94 ml/min (>60); GFR (African American) 114 ML/MIN (>60); Globulin 2.9 g/dL (1.3-3.2); Glucose 104 mg/dl (74-100); HDL Cholesterol 57 mg/dl (40-60); Sodium 139 mmol/L (136-145); Total Protein,Serum 7.3 g/dl (6.3-8.2); Triglycerides 105 mg/dl (30-150); VLDL Cholesterol 21 mg/dL (0-40)
[2020-10-29 13:01] LABS: Direct LDL Cholesterol 70.46 mg/dL (100-129)
[2020-10-29 13:21] LABS: Thyroid Stimulating Hormone 1.62 uIU/mL (0.465-4.68)
== END ==
PROVIDERS: Visit Provider Nurse Practitioner Family
DX: I16.0 Hypertensive urgency (principal); R00.2 Palpitations; E66.01 Morbid (severe) obesity due to excess calories
CPT/HCPCS: 36415; 80053; 80061; 84443; 85025

== ENCOUNTER 2021-05-07 18:07 | Emergency (ER) | payer OTHER, SELFPAY ==
[2021-05-07 19:20] VITALS: BP 163/92; PULSE 69; RESP 18; TEMP 36.8; O2SAT 99; BMI 43.8
[2021-05-07 20:04] LABS: UTC Strep Screen (Rapid) Negative (Negative)
[2021-05-07 20:05] LABS: UTC Influenza A Antigen Negative (Negative); UTC Influenza B Antigen Negative (Negative)
--- NOTE | 2021-05-07 20:14 | HMH.EDUTC ---
[facility] [place] Disposition Clinical Impression: Exposure to COVID-19 virus Sinusitis Qualifiers: Sinusitis location: unspecified location Chronicity: acute Recurrence: non-recurrent Qualified Code(s): J01.90 - Acute sinusitis, unspecified Disposition: Home, Self-Care Condition on Discharge: Good Instructions: DI for Sinusitis Additional Instructions: Drink plenty of fluids. Take tylenol or ibuprofen for pain or fever. Take the medications as directed. Follow up with your regular doctor. GO TO THE ER FOR ANY WORSENING SYMPTOMS Quarantine until you know the results of your covid-19 test. If it is positive, the health department should call you and give you further instructions about your length of Quarantine and other things. Notify your school or workplace of your results and follow their instructions regarding return to work/school. Prescriptions: Benzonatate [Tessalon Perle 100mg Cap] 100 mg PO TIDP PRN #30 cap PRN Reason: Cough Transmission Status: Received by [facility] #[id number] Azithromycin [Z-Agapito 250mg Tab*] 250 mg PO UD DOSE PK #6 tab Transmission Status: Received by [facility] #[id number] Referrals: Huan Patel MD [Primary Care Provider] - Time of Disposition: 20:24 Medical Decision Making - Medical Records Medical records reviewed: No: I reviewed the patient's medical records. - Ricco Inquiry Pt receiving controlled substance: No Vital Signs: 05/07/21 19:20 05/07/21 20:17 Temperature 98.2 F 98.2 F Temperature Source Oral Pulse Rate 69 Pulse Rate [Right Brachial] 69 Respiratory Rate 18 18 Blood Pressure 163/92 H Blood Pressure [Right Arm] 163/92 H Blood Pressure Mean [Right Arm] 115 Blood Pressure Source [Right Arm] Automatic Cuff Blood Pressure Position [Right Arm] Sitting 02 Sat by Pulse Oximetry 99 Oxygen Delivery Method Room Air - Lab Data Lab Results 05/07/21 19:37: Influenza Type A Ag Negative, Influenza Type B Ag Negative 05/07/21 19:37: Strep Scn Rapid Clinic Negative Orders (Tests/Meds): ORDERS Category Date Time Status Covid-19 Nasal PCR ([facility]) Routine Lab 05/07/21 19:30 Received Strep Screen Confirmation Stat Micro 05/07/21 19:37 Received [facility] [place] HPI - General Stated complaint: sore throat, runny nose, congestion Time Seen by Provider: 05/07/21 20:19 Mode of Arrival: Ambulatory Source of Information: Patient Limitations: No Limitations Description of Symptoms (Recalled from Triage Doc. by RN): PATIENT C/O RUNNY NOSE, SCRATCHY THROAT, AND COUGH X 4 DAYS HEENT Symptoms (Recalled from RN notes): Yes Resp Symptoms (Recalled from RN notes): No Skin Symptoms (Recalled from RN notes): No MS Symptoms (Recalled from RN notes): No Functional Status (Recalled from RN notes): WNL - History of Present Illness Provider Complaint: He c/o 2 days of feeling bad and having worsening sinus congestion. He gets sinus infections this time of year kind of often, so he thinks its that, but hes not sure. He has not been vaccinated against covid-19. - Related Data Home Medications Medication Instructions Recorded Confirmed aspirin 81 mg tablet,delayed 81 mg PO DAILY 09/23/18 01/04/21 release atorvastatin 40 mg tablet 40 mg PO DAILY 09/23/18 01/04/21 fluoxetine 20 mg capsule 40 mg PO DAILY cap 09/23/18 01/04/21 Loratadine [Claritin 10mg 10 mg PO DAILY 07/24/19 01/04/21 Tablet] Celecoxib 200 mg PO DAILY 01/18/20 01/04/21 Cholecalciferol (Vitamin D3) 1,000 gm MC DAILY 01/18/20 01/04/21 [Vitamin D3] Lisinopril/Hydrochlorothiazide 1 tab PO DAILY 01/18/20 01/04/21 [Zestoretic 20-12.5 mg Tablet] Metoprolol Succinate [Metoprolol 25 mg PO DAILY 01/18/20 01/04/21 Succinate 25mg Tablet*] Previous Rx's Medication Instructions Recorded azithromycin 250 mg tablet 250 mg PO QDAY 5 Days #6 tab 01/04/21 Azithromycin [Z-Agapito 250mg Tab*] 250 mg PO UD DOSE PK #6 tab 05/07/21 Benzonatate [Tessalon Perle 100mg 100 mg PO TIDP WA
[2021-05-07 20:17] VITALS: BP 163/92; PULSE 69; RESP 18; TEMP 36.8; O2SAT 99
== END 2021-05-07 20:30 | disposition home or self-care (01) ==
PROVIDERS: Emergency Provider Nurse Practitioner Family; PCP Internal Medicine Adolescent Medicine
DX: J01.90 Acute sinusitis, unspecified (principal); Z20.822 Contact with and (suspected) exposure to COVID-19; I10 Essential (primary) hypertension; Z87.891 Personal history of nicotine dependence; Z88.0 Allergy status to penicillin; Z88.5 Allergy status to narcotic agent
CPT/HCPCS: 87804; 87880; 99203; C9803; G0463; U0003; U0005

== ENCOUNTER → 2021-09-06 08:21 | Outpatient (CLI) | payer OTHER, SELFPAY ==
--- NOTE | 2021-09-06 08:26 | CA_ITS ---
APPROVED REPORT EXAM: Comprehensive 2D, Doppler, and color-flow Echocardiogram [employer]: Malathi Patterson RT(R) Ht: 6 ft 4 in Wt: 370lbs BSA: 2.88 BP: 144/82 mmHg Indications: CVA, CP, palpitations, edema, HTN, SOB, MEJIA, obesity, hyperlipidemia 2D Dimensions LVOT 2.20 cm (M/F) 1.5-2.5 LVEF (Olvera's) 42.70 % M: 52 - 72 LV Volume 191.70 mL M: 62 - 150 LV Volume Index 66.56 mL/m2 M: 34 - 74 M-Mode Dimensions RVDd 3.40 cm (0.9-2.6) LA Diam 3.45 cm (1.9-4.0) LVDd 5.14 cm (3.5-5.7) Ao Diam 3.23 cm (2.0-3.7) LVDs 4.11 cm (3.5-5.7) IVSd 1.25 cm (0.6-1.1) PWd 0.98 cm (0.6-1.1) EF (Teich) 40.80% FS 20.00% EDV (Teich) 126.10 mL ESV (Teich) 74.70 mL LV Diastology E Decel Time 200.00 (160-240 msec) E/A Ratio 1.4 MED E' 14.80 (< 7 cm/sec) E'/MED E' Ratio 6.85 (>14) LAT E' 11.20 (<10 cm/sec) E/LAT E' Ratio 9.05 (>14) Mitral Valve MV E Max Luisito. 101.00 (40-130 cm/s) MV A Velocity 72.00 (40-130 cm/s) E/A Ratio 1.41 MV Decel. Time 200.00 (160-240 ms) MV PHT 59.00 ms Left Ventricle Left atrium is mildly enlarged, mild concentric left ventricular hypertrophy, visually estimated ejection fraction 55% with no regional wall motion abnormality, diastolic parameters are within normal range. Right Ventricle Right atrium and right ventricle are mildly enlarged with normal contractility. Aortic Valve Aortic valve is grossly normal, there is no aortic stenosis or aortic insufficiency. Mitral Valve Mitral valve is grossly normal, there is trace mitral regurgitation. Tricuspid Valve Tricuspid valve is grossly normal. There is trace tricuspid regurgitation. Tricuspid regurgitation jet velocity is inadequate for calculation of the right ventricular systolic pressure. Pulmonic Valve Pulmonic valve is poorly visualized. Great Vessels Aortic root is normal size. Inferior vena cava is poorly visualized. Pericardium No significant pericardial effusion noted. Conclusion 1. Mild biatrial enlargement, normal left ventricular size, mild concentric left ventricular hypertrophy, visually estimated ejection fraction of 55% with no regional wall motion abnormality, diastolic parameters are within normal range. 2. Mildly enlarged right ventricle with normal contractility. 3. Trace mitral and tricuspid regurgitation. 4. No significant pericardial effusion noted. Electronically signed by : Mikey Duncan MD 09/06/2021 14:20:34
[2021-09-06 10:27] LABS: Basophils # 0.1 K/mm3 (0-0.2); Basophils % 1.3 % (0.1-2.0); Eosinophils # 0.1 K/mm3 (0.0-0.4); Eosinophils % 1.6 % (0.1-12.0); Hematocrit 44.9 % (42.0-52.0); Hemoglobin 15.6 g/dL (14.1-18.0); Lymphocytes # 2.3 K/mm3 (0.7-4.5); Lymphocytes % 33.2 % (10-50); Mean Corpuscular HGB Conc 34.8 g/dL (31.8-35.4); Mean Corpuscular Hemoglobin 30.2 pg (27.0-31.2); Mean Corpuscular Volume 86.8 fl (80-94); Mean Platelet Volume 8.6 fl (7.4-10.4); Monocytes # 0.3 K/mm3 (0.1-1.0); Monocytes % 4.5 % (1.7-9.3); Neutrophils % 59.4 % (37.0-80.0); Platelet Count 199 K/mm3 (142-424); Red Blood Count 5.18 M/mm3 (4.60-6.20); Red Cell Distribution Width 13.5 % (11.5-17.5); White Blood Count 6.8 K/mm3 (4.8-10.8)
[2021-09-06 11:08] LABS: Hemoglobin A1C 6.2 % (4.0-6.0)
[2021-09-06 12:05] LABS: Alanine Aminotransferase 48 U/L (12-78); Albumin Level 4.5 g/dl (3.5-5.0); Albumin/Globulin Ratio 1.7 (1.1-1.8); Alkaline Phosphatase 87 U/L (38-126); Anion Gap 12.9 mEq/L (5-15); Aspartate Amino Transferase 32 U/L (17-59); Bilirubin,Total 0.5 mg/dl (0.2-1.3); Blood Urea Nitrogen 15 mg/dl (9-20); Calcium 9.4 mg/dl (8.4-10.2); Carbon Dioxide 32 mmol/L (22.0-30.0); Chloride 99 mmol/L (98-107); Chol/HDL Ratio 3.1 (1-3.5); Cholesterol 136 mg/dl (140-200); Estimated Glomerular Filt Rate 93 ml/min (>60); GFR (African American) 113 ML/MIN (>60); Globulin 2.7 g/dL (1.3-3.2); Glucose 117 mg/dl (74-100); HDL Cholesterol 44 mg/dl (40-60); Potassium 3.9 mmoL/L (3.5-5.1); Sodium 140 mmol/L (136-145); Total Protein,Serum 7.2 g/dl (6.3-8.2); Triglycerides 82 mg/dl (30-150); VLDL Cholesterol 16 mg/dL (0-40)
[2021-09-06 12:16] LABS: Direct LDL Cholesterol 76.57 mg/dL (100-129)
[2021-09-06 12:34] LABS: Thyroid Stimulating Hormone 2.01 uIU/mL (0.465-4.68)
[2021-09-06 12:53] LABS: Vitamin B12 229 pg/mL (239-931)
== END ==
PROVIDERS: PCP Internal Medicine Adolescent Medicine; Visit Provider Nurse Practitioner Family
DX: I10 Essential (primary) hypertension (principal); Z86.73 Personal history of transient ischemic attack (TIA), and cerebral infarction without residual deficits
CPT/HCPCS: 36415; 80053; 80061; 82607; 83036; 84443; 85025; 93306

== ENCOUNTER → 2021-09-16 13:51 | Outpatient (CLI) | payer OTHER, SELFPAY | PROVIDERS: Visit Provider Nurse Practitioner | DX: U07.1 COVID-19 (principal) | CPT/HCPCS: C9803; U0003; U0005 ==

== ENCOUNTER 2022-03-23 05:56 | Emergency (ER) | payer OTHER, SELFPAY ==
[2022-03-23 05:56] VITALS: BP 191/122; PULSE 84; RESP 16; TEMP 36.6; O2SAT 98; BMI 43.8
--- NOTE | 2022-03-23 05:58 | PC.NURSE ---
Stroke alert called
--- NOTE | 2022-03-23 06:02 | PC.NURSE ---
Labs drawn and sent to lab in blue specimen bag per protocol
--- NOTE | 2022-03-23 06:04 | CT_ITS ---
PROCEDURE INFORMATION: Exam: CTA Neck With Contrast Exam date and time: 03/23/2022 6:16 AM Age: 41 years old Clinical indication: Stroke-like symptoms; Left facial droop; Additional info: L facial droop, L arm drift, concern for CVA TECHNIQUE: Imaging protocol: Computed tomographic angiography of the neck with contrast. 3D rendering (Not supervised by radiologist): MIP and/or 3D reconstructed images were created by the technologist. Radiation optimization: All CT scans at this facility use at least one of these dose optimization techniques: automated exposure control; mA and/or kV adjustment per patient size (includes targeted exams where dose is matched to clinical indication); or iterative reconstruction. Contrast material: ISOVUE 370; Contrast volume: 100 ml; Contrast route: INTRAVENOUS (IV); COMPARISON: NECKWO CT soft tissue neck wo con 11/24/2017 1:50 PM FINDINGS: Right common carotid artery: No stenosis. No dissection or occlusion. Right internal carotid artery: No stenosis of the extracranial segment. No dissection or occlusion. Right external carotid artery: No occlusion or stenosis of the origin. Left common carotid artery: No stenosis. No dissection or occlusion. Left internal carotid artery: No stenosis of the extracranial segment. No dissection or occlusion. Left external carotid artery: No occlusion or stenosis of the origin. Right vertebral artery: No stenosis. No dissection or occlusion. Left vertebral artery: No stenosis. No dissection or occlusion. Soft tissues: Normal. No significant soft tissue swelling. Bones/joints: No acute fracture. IMPRESSION: No stenosis or occlusion. REFERENCES: NASCET CRITERIA. The degree of internal carotid artery stenosis is based on NASCET criteria. Normal is no stenosis. Mild is less than 50% stenosis. Moderate is 50-69% stenosis. Severe is 70% to 99% stenosis. Total occlusion is no detectable patent lumen.
--- NOTE | 2022-03-23 06:04 | CT_ITS ---
PROCEDURE INFORMATION: Exam: CT Head Without Contrast Exam date and time: 03/23/2022 6:13 AM Age: 41 years old Clinical indication: Stroke-like symptoms; Left facial droop; Lt upper extremity weakness; Additional info: L facial droop, L arm drift, concern for CVA TECHNIQUE: Imaging protocol: Computed tomography of the head without contrast. Radiation optimization: All CT scans at this facility use at least one of these dose optimization techniques: automated exposure control; mA and/or kV adjustment per patient size (includes targeted exams where dose is matched to clinical indication); or iterative reconstruction. Other technique: STROKE PROTOCOL was implemented. COMPARISON: CT HEAD/BRAIN WO CON 01/18/2020 3:09 AM FINDINGS: Brain: Remote infarct in the right basal ganglia. No evidence of acute large vascular territory ischemia. No acute hemorrhage. No effect or midline shift. Cerebral ventricles: No ventriculomegaly. Paranasal sinuses: Visualized sinuses are unremarkable. No fluid levels. Mastoid air cells: Visualized mastoid air cells are well aerated. Bones/joints: Unremarkable. No acute fracture. Soft tissues: Unremarkable. IMPRESSION: 1. No acute intracranial abnormality. Please note that MRI is more sensitive for early changes of acute ischemia. 2. Remote right basal ganglia infarct. ASSESSMENT: ASPECTS ([facility] Stroke Program Early CT Score) is 10.
--- NOTE | 2022-03-23 06:04 | CT_ITS ---
PROCEDURE INFORMATION: Exam: CTA Head With Contrast, Arteriography Exam date and time: 03/23/2022 6:16 AM Age: 41 years old Clinical indication: Stroke-like symptoms; Left facial droop; Additional info: L facial droop, L arm drift, concern for CVA TECHNIQUE: Imaging protocol: Computed tomographic angiography of the head with contrast. Exam focused on the arteries. 3D rendering (Not supervised by radiologist): MIP and/or 3D reconstructed images were created by the technologist. Radiation optimization: All CT scans at this facility use at least one of these dose optimization techniques: automated exposure control; mA and/or kV adjustment per patient size (includes targeted exams where dose is matched to clinical indication); or iterative reconstruction. Contrast material: ISOVUE; Contrast volume: 100 ml; Contrast route: INTRAVENOUS (IV); COMPARISON: CT HEAD/BRAIN WO CON 03/23/2022 6:13 AM FINDINGS: ANTERIOR CIRCULATION: Right internal carotid artery: Unremarkable. Intracranial segment is patent with no significant stenosis. No aneurysm. Right middle cerebral artery: Unremarkable. No occlusion or significant stenosis. No aneurysm. Right anterior cerebral artery: Unremarkable. No occlusion or significant stenosis. No aneurysm. Left internal carotid artery: Unremarkable. Intracranial segment is patent with no significant stenosis. No aneurysm. Left middle cerebral artery: Unremarkable. No occlusion or significant stenosis. No aneurysm. Left anterior cerebral artery: Unremarkable. No occlusion or significant stenosis. No aneurysm. POSTERIOR CIRCULATION: Right vertebral artery: Unremarkable. No occlusion or significant stenosis. No aneurysm. Left vertebral artery: Unremarkable. No occlusion or significant stenosis. No aneurysm. Basilar artery: Unremarkable. No occlusion or significant stenosis. No aneurysm. Right posterior cerebral artery: Unremarkable. No occlusion or significant stenosis. No aneurysm. Left posterior cerebral artery: Unremarkable. No occlusion or significant stenosis. No aneurysm. Brain: No definite mass, mass effect, or midline shift. Cerebral ventricles: No ventriculomegaly. Bones/joints: Unremarkable. No acute fracture. Soft tissues: Unremarkable. IMPRESSION: No large vessel stenosis or occlusion.
--- NOTE | 2022-03-23 06:06 | XR_ITS ---
PROCEDURE INFORMATION: Exam: XR Chest Exam date and time: 03/23/2022 6:50 AM Age: 41 years old Clinical indication: Chest wall pain; Additional info: Cp TECHNIQUE: Imaging protocol: Radiologic exam of the chest. Views: 1 view. COMPARISON: CT ANGIO CHEST 03/23/2022 6:29 AM FINDINGS: Lungs: No focal airspace disease. Pleural spaces: Unremarkable. No pleural effusion. No pneumothorax. Heart/Mediastinum: Cardiomediastinal silhouette is within normal limits. Bones/joints: Unremarkable. IMPRESSION: No acute cardiopulmonary abnormality.
--- NOTE | 2022-03-23 06:09 | CT_ITS ---
PROCEDURE INFORMATION: Exam: CTA Chest With Contrast Exam date and time: 03/23/2022 6:29 AM Age: 41 years old Clinical indication: Pain; Angina pectoris; Additional info: Chest pain, extremity numbness/tingling, h/o CVA TECHNIQUE: Imaging protocol: Computed tomographic angiography of the chest with contrast. 3D rendering (Not supervised by radiologist): MIP and/or 3D reconstructed images were created by the technologist. Radiation optimization: All CT scans at this facility use at least one of these dose optimization techniques: automated exposure control; mA and/or kV adjustment per patient size (includes targeted exams where dose is matched to clinical indication); or iterative reconstruction. Contrast material: ISOVUE; Contrast volume: 100 ml; Contrast route: INTRAVENOUS (IV); COMPARISON: CR XR CHEST 2V 07/24/2019 2:43 AM FINDINGS: Pulmonary arteries: Nondiagnostic evaluation of the pulmonary arteries due to suboptimal contrast bolus timing. Aorta: Unremarkable. No aortic aneurysm. No aortic dissection. Lungs: Unremarkable. No consolidation. No masses. Pleural spaces: Unremarkable. No pneumothorax. No pleural effusion. Heart: Unremarkable. No cardiomegaly. No pericardial effusion. Lymph nodes: Calcified mediastinal lymph nodes. Bones/joints: Unremarkable. No acute fracture. Soft tissues: Unremarkable. IMPRESSION: Nondiagnostic evaluation of the pulmonary arteries due to suboptimal contrast bolus timing.
--- NOTE | 2022-03-23 06:14 | PC.NURSE ---
Pt gone to CT
--- NOTE | 2022-03-23 06:15 | HMH.EDGENADL ---
ED Disposition Clinical Impression: Anxiety about health, Atypical chest pain, Hypokalemia Disposition: Home, Self-Care Condition on Discharge: Good Instructions: DI for Atypical Chest Pain, DI for Anxiety -- Child Additional Instructions: Please follow-up with your primary care provider over the next 48 hours. Return to the emergency department for any new or worsening symptoms. Referrals: Huan Patel MD [Primary Care Provider] - - Critical Care Critical Care Time: No Attestation: On , the high probability of a clinically significant, sudden or life threatening deterioration of the following system(s) required my full and direct attention, intervention and personal management. The time I documented below is in addition to time spent performing reported procedures but includes the following listed in this critical care notation. Medical Decision Making - Ricco Inquiry Pt receiving controlled substance: No Vital Signs: 03/23/22 05:56 03/23/22 06:57 Temperature 98 F Temperature Source Oral Pulse Rate 72 Pulse Rate [Left Radial] 84 Respiratory Rate 16 22 Blood Pressure 171/113 H Blood Pressure [Right Arm] 191/122 H Blood Pressure Mean [Right Arm] 145 Blood Pressure Source [Right Arm] Automatic Cuff Blood Pressure Position [Right Arm] Sitting 02 Sat by Pulse Oximetry 98 97 Oxygen Delivery Method Room Air Room Air - Lab Data Lab Results 03/23/22 06:00: POC Glucose 161 H 03/23/22 06:01: WBC 8.9, RBC 4.88, Hgb 14.6, Hct 44.6, MCV 91.4, MCH 29.9, MCHC 32.7, RDW 13.8, Plt Count 174, MPV 8.8, Neut % (Auto) 62.0, Lymph % (Auto) 30.5, [place] % (Auto) 4.0, Eos % (Auto) 2.8, Baso % (Auto) 0.7, Neut # (Auto) 5.5, Lymph # (Auto) 2.7, [place] # (Auto) 0.4, Eos # (Auto) 0.3, Baso # (Auto) 0.1 03/23/22 06:01: PT 10.7, INR 0.94, APTT 28.5 03/23/22 06:01: Sodium 139, Potassium 3.3 L, Chloride 101, Carbon Dioxide 31 H, Anion Gap 10.3, BUN 17, Creatinine 0.80, Estimated Creat Clear 151, Estimated GFR 107, Est GFR ( Amer) 130, Glucose 145 H, Calcium 9.5, Magnesium 1.7, Total Bilirubin 0.7, Direct Bilirubin 0.2, Conjugated Bilirubin 0.0, Indirect Bilirubin 0.5, Unconjugated Bilirubin 0.6, AST 45, ALT 74, Alkaline Phosphatase 113, Troponin I < 0.01, Total Protein 7.6, Albumin 4.4, Lipase 47 03/23/22 06:04: SARS-CoV-2 (PCR) Not detected, Influenza A Untype (PCR) Not detected, Influenza Type B (PCR) Not detected 03/23/22 06:53: Lactate 2.3 H Result diagrams: 03/23/22 06:01 03/23/22 06:01 Orders (Tests/Meds): ED MEDICATIONS Discontinued Medications Generic Name Dose Route Start Last Admin Trade Name Freq PRN Reason Stop Dose Admin Aspirin 243 mg 03/23/22 06:37 03/23/22 07:00 Aspirin 81mg Chewable Tablet PO 03/23/22 06:38 243 mg ONCE ONE Administration Iopamidol 100 ml 03/23/22 06:20 03/23/22 06:22 Iopamidol-370 (76%);100ml Bottle IV 03/23/22 06:21 100 ml ONCE ONE Administration Iopamidol 100 ml 03/23/22 06:33 03/23/22 06:38 Iopamidol-370 (76%);100ml Bottle IV 03/23/22 06:34 100 ml ONCE ONE Administration Potassium Chloride 40 meq 03/23/22 07:15 Potassium Chloride 20meq Tab PO 03/23/22 07:16 ONCE ONE Sodium Chloride 40 ml 03/23/22 06:20 03/23/22 06:22 0.9 % Sodium Chloride 50 Ml Vial IV 03/23/22 06:21 40 ml ONCE ONE Administration Sodium Chloride 10 ml 03/23/22 06:20 03/23/22 06:22 Sodium Chloride 0.9% 10ml Syr (Rad Only) IV 03/23/22 06:21 10 ml ONCE ONE Administration Sodium Chloride 10 ml 03/23/22 06:33 03/23/22 06:36 Sodium Chloride 0.9% 10ml Syr (Rad Only) IV 03/23/22 06:34 10 ml ONCE ONE Administration Sodium Chloride 40 ml 03/23/22 06:33 03/23/22 06:36 0.9 % Sodium Chloride 50 Ml Vial IV 03/23/22 06:34 40 ml ONCE ONE Administration ORDERS Category Date Time Status XR chest portable Stat Exams 03/23/22 06:06 Taken Troponin I Q3H Lab 03/23/22 09:15 Ordered Troponin I Q3H Lab 03/23/22 12:15 Ord
[2022-03-23 06:18] LABS: Basophils # 0.1 K/mm3 (0-0.2); Basophils % 0.7 % (0.1-2.0); Eosinophils # 0.3 K/mm3 (0.0-0.4); Eosinophils % 2.8 % (0.1-12.0); Hematocrit 44.6 % (42.0-52.0); Hemoglobin 14.6 g/dL (14.1-18.0); Lymphocytes # 2.7 K/mm3 (0.7-4.5); Lymphocytes % 30.5 % (10-50); Mean Corpuscular HGB Conc 32.7 g/dL (31.8-35.4); Mean Corpuscular Hemoglobin 29.9 pg (27.0-31.2); Mean Corpuscular Volume 91.4 fl (80-94); Mean Platelet Volume 8.8 fl (7.4-10.4); Monocytes # 0.4 K/mm3 (0.1-1.0); Neutrophils # 5.5 K/mm3 (1.8-7.8); Platelet Count 174 K/mm3 (142-424); Red Blood Count 4.88 M/mm3 (4.60-6.20); Red Cell Distribution Width 13.8 % (11.5-17.5); White Blood Count 8.9 K/mm3 (4.8-10.8)
[2022-03-23 06:18] LABS: POC Glucose,Bedside 161 (70-110)
--- NOTE | 2022-03-23 06:18 | PC.NURSE ---
PT AND FAMILY AWARE OF PLAN OF CARE. FAMILY AT BEDSIDE. WCM.
--- NOTE | 2022-03-23 06:18 | PC.NURSE ---
BLOOD GLUCOSE 161
[2022-03-23 06:27] LABS: Coronavirus 19, PCR Not Detected (NotDetected); Influenza A, PCR Not Detected (NotDetected); Influenza B, PCR Not Detected (NotDetected)
[2022-03-23 06:28] LABS: Alanine Aminotransferase 74 U/L (12-78); Albumin Level 4.4 g/dl (3.5-5.0); Alkaline Phosphatase 113 U/L (38-126); Anion Gap 10.3 mEq/L (5-15); Aspartate Amino Transferase 45 U/L (17-59); Bilirubin,Direct 0.2 mg/dl (0.0-0.4); Bilirubin,Indirect 0.5 mg/dL (0.0-0.9); Bilirubin,Total 0.7 mg/dl (0.2-1.3); Bilirubin,Unconjugated 0.6 mg/dL (0.0-1.1); Blood Urea Nitrogen 17 mg/dl (9-20); Calcium 9.5 mg/dl (8.4-10.2); Carbon Dioxide 31 mmol/L (22.0-30.0); Chloride 101 mmol/L (98-107); Creatinine Clearance Estimated 151 mL/min (50-200); Estimated Glomerular Filt Rate 107 ml/min (>60); GFR (African American) 130 ML/MIN (>60); Glucose 145 mg/dl (74-100); Lipase 47 U/L (23-300); Magnesium 1.7 mg/dl (1.6-2.3); Potassium 3.3 mmoL/L (3.5-5.1); Sodium 139 mmol/L (136-145); Total Protein,Serum 7.6 g/dl (6.3-8.2)
[2022-03-23 06:29] LABS: Activated Partial Thrombo Time 28.5 seconds (22.8-30.6); INR 0.94 (0.9-1.1); Prothrombin Time 10.7 seconds (10.1-12.5)
--- NOTE | 2022-03-23 06:34 | PC.NURSE ---
responded on Viz lenard with No elvo and carotids look ok Notified
--- NOTE | 2022-03-23 06:35 | PC.NURSE ---
speaking with SHARIFA
--- NOTE | 2022-03-23 06:36 | PC.NURSE ---
on phone with SHARIFA
--- NOTE | 2022-03-23 06:48 | PC.NURSE ---
pt returned from CT
[2022-03-23 06:55] LABS: Troponin I < 0.01 ng/ml (0.00-0.034)
--- NOTE | 2022-03-23 06:55 | PC.NURSE ---
PT NIH 3. PT DENIES ANY FURTHER NUMBNESS OR TINGLING. FAMILY AT BEDSIDE. WCM.
--- NOTE | 2022-03-23 06:56 | PC.NURSE ---
Pt made aware of need for urine sample
[2022-03-23 06:57] VITALS: BP 171/113; PULSE 72; RESP 22; O2SAT 97
--- NOTE | 2022-03-23 06:59 | PC.NURSE ---
speaking with SHARIFA
--- NOTE | 2022-03-23 07:00 | PC.NURSE ---
PT AWARE OF NEED FOR URINE SAMPLE. PT REPORTS HE IS UNABLE TO VOID AT THIS TIME.
[2022-03-23 07:12] LABS: Lactic Acid 2.3 mmol/L (0.7-2.1)
[2022-03-23 07:16] LABS: Microscopic, Urine URINE MICROSCOPIC (MICROSCOPIC)
[2022-03-23 07:27] VITALS: BP 138/78; PULSE 69; RESP 16; O2SAT 96
[2022-03-23 07:34] LABS: Appearance,Urine CLEAR (Clear); Bilirubin,Urine Negative (Negative); Blood, Urine Negative (Negative); Color,Urine YELLOW (Yellow); Glucose,Urine (UA) Negative (Negative); Ketones,Urine Negative (Negative); Leukocyte Esterase,Urine Negative (Negative); Nitrate,Urine Negative (Negative); PH,Urine 7.5 (5.0-8.5); Protein,Urine Negative (Negative); Specific Gravity, Urine <= 1.005 (1.005-1.030); Urobilinogen,Urine 0.2 EU/dl (0.2)
--- NOTE | 2022-03-23 07:44 | PC.NURSE ---
PT ambulated to restroom
[2022-03-23 07:53] LABS: Barbiturates Screen,Urine Negative ng/ml (<200)
[2022-03-23 07:54] LABS: Amphetamine/Metha Screen,Urine Negative ng/ml (<1000)
[2022-03-23 07:55] LABS: Benzodiazepines Screen,Urine Negative ng/ml (<200); Cocaine Screen,Urine Negative ng/ml (<300)
--- NOTE | 2022-03-23 07:55 | PC.NURSE ---
ED MD AT BEDSIDE TO DISCUSS DISCHARGE
[2022-03-23 07:56] LABS: Cannabinoid Screen,Urine Negative ng/ml (<50); Phencyclidine Screen,Urine Negative ng/ml (<25)
[2022-03-23 07:57] LABS: Methadone Screen,Urine Negative ng/ml (<300)
[2022-03-23 07:58] LABS: Opiate Screen,Urine Negative ng/ml (<300)
[2022-03-23 08:06] LABS: Squamous Epithelial Cell,Urine Occasional #/hpf (0-5)
[2022-03-23 08:17] VITALS: BP 138/78; PULSE 71; RESP 18; TEMP 36.9; O2SAT 98
== END 2022-03-23 08:20 | disposition home or self-care (01) ==
PROVIDERS: Emergency Provider Emergency Medicine; PCP Internal Medicine Adolescent Medicine
DX: F41.8 Other specified anxiety disorders (principal); R07.9 Chest pain, unspecified; E87.6 Hypokalemia; Z86.73 Personal history of transient ischemic attack (TIA), and cerebral infarction without residual deficits; I10 Essential (primary) hypertension; E66.9 Obesity, unspecified; E78.5 Hyperlipidemia, unspecified; Z68.41 Body mass index [BMI] 40.0-44.9, adult; Z79.82 Long term (current) use of aspirin; Z79.899 Other long term (current) drug therapy; Z88.0 Allergy status to penicillin; Z88.6 Allergy status to analgesic agent
CPT/HCPCS: 70450; 70496; 70498; 71045; 71275; 80048; 80076; 80305; 81001; 82962; 83605; 83690; 83735; 84484; 85025; 85610; 85730; 99285; C9803; Q9967; U0003; U0005

== ENCOUNTER → 2022-11-07 08:42 | Outpatient (CLI) | payer OTHER, SELFPAY ==
--- NOTE | 2022-11-07 08:52 | XR_ITS ---
FINAL REPORT CLINICAL HISTORY: knee pain COMPARISON: None FINDINGS: Three views of the left knee reveal no evidence of fracture or dislocation. The bony alignment is normal. Mild degenerative change. There is no evidence of joint effusion. No localized soft tissue abnormality is seen. IMPRESSION: Degenerative change with no acute abnormality identified. Reviewed, Interpreted and Dictated by Jose Rafael Perez III, MD Transcribed by Gina Rashid Authenticated and [facility]
--- NOTE | 2022-11-07 08:52 | XR_ITS ---
FINAL REPORT CLINICAL HISTORY: knee pain COMPARISON: 12/30/2019 FINDINGS: Three views of the right knee reveal no evidence of fracture or dislocation. The bony alignment is normal. Mild degenerative change. There is no evidence of joint effusion. No localized soft tissue abnormality is identified. IMPRESSION: Degenerative change with no acute abnormality identified. Reviewed, Interpreted and Dictated by Jose Rafael Perez III, MD Transcribed by Gina Rashid Authenticated and [facility]
== END ==
PROVIDERS: PCP Student in an Organized Health Care Education/Training Program; Visit Provider Student in an Organized Health Care Education/Training Program
DX: M25.562 Pain in left knee (principal); M25.561 Pain in right knee
CPT/HCPCS: 73562

== ENCOUNTER → 2022-12-08 14:26 | Outpatient (CLI) | payer OTHER, SELFPAY ==
--- NOTE | 2022-12-08 14:31 | MR_ITS ---
FINAL REPORT CLINICAL HISTORY: back pain. LEFT LEG PAIN. NO INJURY OR TRAUMA. FINDINGS: MRI LUMBAR SPINE W/O CONTRAST Multiplanar MR imaging of the lumbar spine was performed without contrast. On the sagittal T2-weighted images, disc degeneration is seen at multiple levels. The vertebral alignment is normal. There is no evidence of fracture. The conus has an unremarkable appearance. T11-12: No significant central canal stenosis or neural foraminal narrowing. T12-L1: An annular disc bulge is present. L1-2: An annular disc bulge is present. L2-3: Annular disc bulge is present. L3-4: An annular disc bulge with facet arthropathy is present. There is a left posterolateral disc protrusion with mild right and moderate left neural foraminal narrowing. L4-5: An annular disc bulge with facet arthropathy is present. There is mild bilateral neural foraminal narrowing. L5-S1: There is partial sacralization of L5. There is mild spurring of the SI joints. IMPRESSION: Multilevel disc degeneration with a left posterolateral disc protrusion at L3-4 and neural foraminal narrowing at L3-4 and L4-5. Reviewed, Interpreted and Dictated by Jose Rafael Perez III, MD Transcribed by Diana Reyes Authenticated and [facility]
== END ==
PROVIDERS: PCP Student in an Organized Health Care Education/Training Program; Visit Provider Orthopaedic Surgery
DX: M54.9 Dorsalgia, unspecified (principal); M54.50 Low back pain, unspecified
CPT/HCPCS: 72148; 76376

== ENCOUNTER 2022-12-16 14:36 | Emergency (ER) | payer OTHER, SELFPAY ==
[2022-12-16 14:37] VITALS: BP 155/94; PULSE 76; RESP 16; TEMP 36.7; O2SAT 97; BMI 43.8
--- NOTE | 2022-12-16 15:02 | PC.NURSE ---
LOVELY CARTWRIGHT at
--- NOTE | 2022-12-16 15:06 | HMH.EDGENADL ---
Discharge Plan Disposition Patient Disposition: Home, Self-Care Prescriptions Prescriptions: New oxycodone 5 mg capsule 5 mg PO Q6H PRN (Reason: pain) Qty: 12 0RF No Action metformin 500 mg tablet 500 mg PO BID metoprolol succinate 100 mg tablet extended release 24 hr 100 mg PO DAILY Label Comments: TAKE ONE TABLET BY MOUTH EVERY DAY cyanocobalamin (vitamin B-12) 1,000 mcg/mL solution 1,000 mcg IM WEEKLY Label Comments: INJECT 1 ML INTRAMUSCULARLY ONCE A WEEK DIRECTED amlodipine 5 mg tablet 5 mg PO DAILY Label Comments: TAKE ONE TABLET BY MOUTH EVERY DAY aspirin 81 mg tablet,chewable 1 tab PO DAILY cholecalciferol (vitamin D3) 25 mcg (1,000 unit) tablet 25 mcg PO DAILY Label Comments: TAKE ONE TABLET BY MOUTH EVERY DAY lisinopril-hydrochlorothiazide 20-25 mg tablet 1 tab PO DAILY atorvastatin 40 mg tablet 40 mg PO DAILY celecoxib 200 MG capsule 200 mg PO DAILY loratadine 10 MG tablet 10 mg PO DAILY Label Comments: TAKE ONE TABLET BY MOUTH EVERY DAY Referrals Follow up/Referrals: Provider,Referral, [Primary Care Provider] - See instructions Activity Restrictions/Add. Instructions Additional Instructions/Restrictions: Follow-up with your primary care physician as scheduled. Return for worsening pain swelling or any other concerns within the next 8 hours Clinical Impressions Clinical Impression: Acute knee pain General Adult HPI General Chief complaint: Extremity Injury, Lower Stated complaint: LT knee pain, can not put pressure on it Time Seen by Provider: 12/16/22 14:40 Mode of Arrival: Wheelchair Source of Information: Patient Limitations: No Limitations Description of Symptoms (Recalled from ER Triage Doc. by RN): Pt reports worsening knee pain earlier today, states unable to bear weight on LLE. Pt reports has been having knee pain intermittently for approx 3 months, pt reports has been seeing dr. restrepo, reports has had xrays of his L knee approx 1 month ago. States recently had an MRI of his back r/t dr. restrepo though pain in his knee could be r/t to his back. Pt reports burning pain on medial L knee area. History of Present Illness HPI narrative: 42-year-old male presents with left knee pain. He says it has been going on for 3 months. He has had difficulty bearing weight a. No known trauma. Had x-ray that was negative for acute fracture with primary care physician however has had worsening pain with standing today. No fever no chills no swelling. No erythema or warmth. No other trauma. Related Data Home Medications Medication Instructions Recorded Confirmed atorvastatin 40 mg tablet 40 mg PO DAILY Cholesterol 09/23/18 12/02/22 loratadine 10 mg tablet 10 mg PO DAILY allergies 07/24/19 12/02/22 celecoxib 200 mg capsule 200 mg PO DAILY Pain 01/18/20 12/02/22 amlodipine 5 mg tablet 5 mg PO DAILY 08/06/22 12/02/22 cyanocobalamin (vitamin B-12) 1,000 mcg IM WEEKLY 08/06/22 12/02/22 1,000 mcg/mL injection solution metformin 500 mg tablet 500 mg PO BID 08/06/22 12/02/22 metoprolol succinate 100 mg 100 mg PO DAILY 08/06/22 12/02/22 tablet,extended release 24 hr aspirin 81 mg chewable tablet 1 tab PO DAILY 09/16/22 12/02/22 cholecalciferol (vitamin D3) 25 25 mcg PO DAILY 09/16/22 12/02/22 mcg (1,000 unit) tablet lisinopril 20 1 tab PO DAILY 09/16/22 12/02/22 mg-hydrochlorothiazide 25 mg tablet Previous Rx's Medication Instructions Recorded oxycodone 5 mg capsule 5 mg PO Q6H PRN pain #12 caps 12/16/22 Allergies Allergy/AdvReac Type Severity Reaction Status Date / Time codeine [CODEINE] Allergy Unknown -- Verified 12/02/22 14:09 Penicillins [PENICILLINS] Allergy Unknown -- Verified 12/02/22 14:09 [facility] Disclaimer: The information contained in this section may have been updated after the patient was seen, as this information can be updated by other users. Medical His
--- NOTE | 2022-12-16 15:11 | PC.NURSE ---
spoke with care management r/t getting pt scheduled for MRI per ER MD request. Reports pt will need to have a precertification for MRI, notified ER MD
[2022-12-16 15:26] VITALS: BP 148/71; PULSE 72; RESP 16; TEMP 36.7; O2SAT 97
== END 2022-12-16 15:26 | disposition home or self-care (01) ==
LOC: ER 15:18
PROVIDERS: Emergency Provider Emergency Medicine
DX: M25.562 Pain in left knee (principal)
CPT/HCPCS: 99283

== ENCOUNTER → 2023-02-10 23:22 | Outpatient (CLI) | payer OTHER, SELFPAY ==
[2023-02-10 19:50] LABS: Basophils % 0.3 % (0.1-2.0); Eosinophils # 0.2 K/mm3 (0.0-0.4); Eosinophils % 1.8 % (0.1-12.0); Hematocrit 42.6 % (42.0-52.0); Hemoglobin 14.9 g/dL (14.1-18.0); Lymphocytes # 2.4 K/mm3 (0.7-4.5); Lymphocytes % 24.6 % (10-50); Mean Corpuscular HGB Conc 34.9 g/dL (31.8-35.4); Mean Corpuscular Hemoglobin 29.1 pg (27.0-31.2); Mean Corpuscular Volume 83.3 fl (80-94); Mean Platelet Volume 9.7 fl (7.4-10.4); Monocytes # 0.4 K/mm3 (0.1-1.0); Neutrophils # 6.7 K/mm3 (1.8-7.8); Neutrophils % 69.2 % (37.0-80.0); Platelet Count 194 K/mm3 (142-424); Red Blood Count 5.11 M/mm3 (4.60-6.20); Red Cell Distribution Width 13.8 % (11.5-17.5); White Blood Count 9.6 K/mm3 (4.8-10.8)
[2023-02-10 19:51] LABS: Alanine Aminotransferase 68 U/L (12-78); Albumin Level 4.3 g/dl (3.5-5.0); Albumin/Globulin Ratio 1.4 (1.1-1.8); Anion Gap 17.6 mEq/L (5-15); Aspartate Amino Transferase 59 U/L (17-59); Bilirubin,Total 0.6 mg/dl (0.2-1.3); Blood Urea Nitrogen 15 mg/dl (9-20); Calcium 9.7 mg/dl (8.4-10.2); Carbon Dioxide 26 mmol/L (22.0-30.0); Chloride 100 mmol/L (98-107); Estimated Glomerular Filt Rate 107 ml/min (>60); GFR (African American) 129 ML/MIN (>60); Globulin 3.1 g/dL (1.3-3.2); Glucose 113 mg/dl (74-100); Potassium 3.6 mmoL/L (3.5-5.1); Sodium 140 mmol/L (136-145); Total Protein,Serum 7.4 g/dl (6.3-8.2); Triglycerides 164 mg/dl (30-150)
[2023-02-10 19:52] LABS: Alkaline Phosphatase 109 U/L (38-126); Chol/HDL Ratio 3.1 (1-3.5); Cholesterol 158 mg/dl (140-200); HDL Cholesterol 51 mg/dl (40-60); VLDL Cholesterol 33 mg/dL (0-40)
[2023-02-10 20:02] LABS: Direct LDL Cholesterol 84.82 mg/dL (100-129)
[2023-02-10 20:06] LABS: 25-OH Vitamin D, Total 41.8 ng/mL (30-100)
[2023-02-10 20:21] LABS: Prostate Specific Ag Screen 0.6 ng/ml (0.0-4.0); Thyroid Stimulating Hormone 2.07 uIU/mL (0.465-4.68)
[2023-02-10 20:40] LABS: Vitamin B12 616 pg/mL (239-931)
== END ==
PROVIDERS: PCP Student in an Organized Health Care Education/Training Program; Visit Provider Student in an Organized Health Care Education/Training Program
DX: I10 Essential (primary) hypertension (principal); R06.09 Other forms of dyspnea; R00.2 Palpitations; E55.9 Vitamin D deficiency, unspecified; E66.9 Obesity, unspecified; Z68.41 Body mass index [BMI] 40.0-44.9, adult; Z13.21 Encounter for screening for nutritional disorder; Z13.0 Encounter for screening for diseases of the blood and blood-forming organs and certain disorders involving the immune mechanism; Z12.5 Encounter for screening for malignant neoplasm of prostate; Z13.29 Encounter for screening for other suspected endocrine disorder; Z13.220 Encounter for screening for lipoid disorders; Z79.899 Other long term (current) drug therapy; R59.9 Enlarged lymph nodes, unspecified
CPT/HCPCS: 80053; 80061; 82306; 82607; 83036; 84443; 85025; G0103

== ENCOUNTER → 2023-02-16 10:38 | Outpatient (CLI) | payer OTHER, SELFPAY ==
--- NOTE | 2023-02-16 10:42 | CA_ITS ---
FINAL REPORT TECHNIQUE: Grayscale, color Doppler and duplex Doppler ultrasound of the kidneys, aorta and renal arteries was performed. Multiple velocities were measured. CLINICAL HISTORY: Uncontrolled HTN,OBESITY COMPARISON: None FINDINGS: Aorta velocity: 118 cm/sec Right kidney: 12.9 cm. No evidence of hydronephrosis or mass. Right intrarenal RI: 0.58-0.59 Right renal artery velocity: 153 cm/sec. Right RAR (Renal artery-Aortic Ratio): 1.29 Left Kidney: 12.1 cm. No evidence of hydronephrosis or mass. Left intrarenal RI: 0.52-0.56 Left renal artery velocity: 100 cm/sec. Left RAR (Renal Artery-Aortic Ratio): 0.85 IMPRESSION: No evidence of significant renal artery stenosis. CT angiogram or postcontrast MR angiogram would be more sensitive for evaluation of possible renal artery stenosis. Reviewed, Interpreted and Dictated by Jose Rafael Perez III, MD Transcribed by Gina Rashid Authenticated and . [facility]
== END ==
PROVIDERS: PCP Student in an Organized Health Care Education/Training Program; Visit Provider Student in an Organized Health Care Education/Training Program
DX: I10 Essential (primary) hypertension (principal)
CPT/HCPCS: 93976

== ENCOUNTER → 2023-04-02 12:17 | Outpatient (CLI) | payer OTHER, SELFPAY ==
[2023-04-02 12:59] LABS: Basophils % 0.3 % (0.1-2.0); Eosinophils # 0.1 K/mm3 (0.0-0.4); Eosinophils % 1.4 % (0.1-12.0); Hematocrit 43.6 % (42.0-52.0); Hemoglobin 14.7 g/dL (14.1-18.0); Lymphocytes # 1.8 K/mm3 (0.7-4.5); Lymphocytes % 24.4 % (10-50); Mean Corpuscular HGB Conc 33.7 g/dL (31.8-35.4); Mean Corpuscular Hemoglobin 29.4 pg (27.0-31.2); Mean Corpuscular Volume 87.3 fl (80-94); Mean Platelet Volume 9.1 fl (7.4-10.4); Monocytes # 0.3 K/mm3 (0.1-1.0); Monocytes % 4.3 % (1.7-9.3); Neutrophils # 5.2 K/mm3 (1.8-7.8); Neutrophils % 69.6 % (37.0-80.0); Platelet Count 164 K/mm3 (142-424); Red Blood Count 4.99 M/mm3 (4.60-6.20); Red Cell Distribution Width 13.6 % (11.5-17.5); White Blood Count 7.5 K/mm3 (4.8-10.8)
[2023-04-02 13:40] LABS: Alanine Aminotransferase 36 U/L (12-78); Albumin Level 4.3 g/dl (3.5-5.0); Alkaline Phosphatase 108 U/L (38-126); Anion Gap 13.6 mEq/L (5-15); Aspartate Amino Transferase 28 U/L (17-59); Bilirubin,Indirect 0.7 mg/dL (0.0-0.9); Bilirubin,Total 0.7 mg/dl (0.2-1.3); Bilirubin,Unconjugated 0.9 mg/dL (0.0-1.1); Blood Urea Nitrogen 18 mg/dl (9-20); Calcium 9.3 mg/dl (8.4-10.2); Carbon Dioxide 29 mmol/L (22.0-30.0); Chloride 102 mmol/L (98-107); Chol/HDL Ratio 4.6 (1-3.5); Cholesterol 217 mg/dl (140-200); Estimated Glomerular Filt Rate 107 ml/min (>60); GFR (African American) 129 ML/MIN (>60); Glucose 125 mg/dl (74-100); HDL Cholesterol 47 mg/dl (40-60); Potassium 3.6 mmoL/L (3.5-5.1); Sodium 141 mmol/L (136-145); Total Protein,Serum 7.4 g/dl (6.3-8.2); Triglycerides 221 mg/dl (30-150); VLDL Cholesterol 44 mg/dL (0-40)
[2023-04-02 13:51] LABS: Direct LDL Cholesterol 130.73 mg/dL (100-129)
[2023-04-02 14:10] LABS: Thyroid Stimulating Hormone 1.97 uIU/mL (0.465-4.68)
== END ==
PROVIDERS: PCP Student in an Organized Health Care Education/Training Program; Visit Provider Internal Medicine
DX: R06.00 Dyspnea, unspecified (principal); R07.9 Chest pain, unspecified; R00.2 Palpitations; I11.9 Hypertensive heart disease without heart failure; N52.2 Drug-induced erectile dysfunction; N52.9 Male erectile dysfunction, unspecified; Z86.73 Personal history of transient ischemic attack (TIA), and cerebral infarction without residual deficits; I63.9 Cerebral infarction, unspecified; E11.9 Type 2 diabetes mellitus without complications; Z79.84 Long term (current) use of oral hypoglycemic drugs
CPT/HCPCS: 36415; 80048; 80061; 80076; 84439; 84443; 85025

== ENCOUNTER 2023-04-10 08:30 | Outpatient (RCR) | payer OTHER, SELFPAY ==
--- NOTE | 2023-03-26 09:20 | HMH.PTOPEV ---
PT Outpatient Evaluation Rehab PT Outpatient Evaluation Start: 03/26/23 08:12 Freq: Status: Active Protocol: Document 03/26/23 09:10 JAROD (Rec: 03/26/23 09:20 JAROD [id number]) E-signed By Bong Queen, PT Outpatient Therapy Subjective History Subjective History Patient is a 42 year old male presenting to outpatient PT with reports of chronic L knee pain starting approx 1 year ago. Patient also complains of R knee pain. Most recent imaging indicates L knee degenerative changes and torn medial meniscus. No specific mech of injury to report. Comorbidities include hx of CVA affecting L side (5 yrs), HTN and pre-diabetes. Chief Complaint Pain,Stiff,Clicks,Swelling, Gives out/Unstable Symptom Type Sharp,Burning Symptoms Relieved By OTC Meds,Activity Symptoms Aggravated By Sitting,Physical Activity Prior Functional Limitations None Current Functional Limitations Housework,Standing,Sitting, Squatting,Walking,Stairs Symptom Description Constant but Variable Level of pain today (0-10) 1 Pain scale - at its best (0-10) 1 Pain scale - at its worst (0-10) 7 Hip/Knee Eval Gait Observation General Gait Pattern Observation Antalgic Gait,Decrease Weight Bear (L) Palpation Tenderness left Knee Palpation Finding Tenderness Knee Palpation Overall Comment MJL/medial patellar border 3/4 MMT Hip Flexion Strength Grade 5 Normal Hip Abduction Strength Grade 4 Good Hip Adduction Strength Grade 4 Good Hip Extension Strength Grade 4- Good- Hip External Rotation Strength Grade 4 Good Hip Internal Rotation Strength Grade 4 Good Knee Extension Strength Grade 4- Good- Knee Flexion Strength Grade 4 Good ROM Hip ROM Reason Not Measured Within Functional Limits Knee Extension Active Range of Motion ( -3 degrees) Knee Flexion Active Range of Motion ( 108 degrees) Special Tests Knee Anterior Nelsy Test Negative Left Knee Valgus Stress Test Positive Left Knee Varus Stress Test Negative Left Knee Jared Test Positive Left Outpatient Therapy Assessment Impairments Problems/Impairmments Palpation Tenderness,Impaired Range of Motion,Impaired Strength,Impaired Walking,
== END 2023-04-10 08:35 | disposition home or self-care (01) ==
LOC: PT 08:30
PROVIDERS: PCP Student in an Organized Health Care Education/Training Program; Visit Provider Orthopaedic Surgery
DX: M17.12 Unilateral primary osteoarthritis, left knee (principal); S83.232A Complex tear of medial meniscus, current injury, left knee, initial encounter
CPT/HCPCS: 97110; 97163; 97530

== ENCOUNTER → 2023-04-23 14:59 | Outpatient (CLI) | payer OTHER, SELFPAY ==
--- NOTE | 2023-04-23 15:03 | CA_ITS ---
APPROVED REPORT EXAM: Comprehensive 2D, Doppler, and color-flow Echocardiogram Maintenance Tech: Charley Muir RVT Ht: 6 ft 0 in Wt: 360lbs BSA: 2.74 BP: 150/86 mmHg Indications: SOA,HX CVA,PALPS,EDEMA,HX CVA,HTN,OBESITY Echo Enhancing Agent Indication: Rule out Shunt Agent(s) / Amount(s) Used: Agitated Saline 5 cc 2D Dimensions LVOT 2.47 cm (M/F) 1.5-2.5 LA Volume 62.50 mL LA Volume Index 22.81 mL/m2 (M/F) 16-34 M-Mode Dimensions RVDd 3.18 cm (0.9-2.6) LA Diam 4.20 cm (1.9-4.0) LVDd 5.41 cm (3.5-5.7) Ao Diam 3.66 cm (2.0-3.7) LVDs 3.35 cm (3.5-5.7) IVSd 1.44 cm (0.6-1.1) PWd 0.91 cm (0.6-1.1) EF (Teich) 67.70% FS 38.10% EDV (Teich) 141.90 mL TAPSE 3.24 (<1.7) ESV (Teich) 45.80 mL LV Diastology E Decel Time 233.00 (160-240 msec) E/A Ratio 1.4 MED E' 8.30 (< 7 cm/sec) E'/MED E' Ratio 11.81 (>14) LAT E' 7.80 (<10 cm/sec) E/LAT E' Ratio 12.56 (>14) Aortic Valve AO Peak GR. 7.40 mmHg Mitral Valve MV E Max Luisito. 98.00 (40-130 cm/s) MV A Velocity 71.00 (40-130 cm/s) E/A Ratio 1.38 MV Decel. Time 233.00 (160-240 ms) MV PHT 68.00 ms Pulmonary Valve PV Peak Velocity 129.00 (50-150 cm/s) Left Ventricle The left ventricle is normal size. The left ventricular systolic function is normal. The left ventricular ejection fraction is within the normal range. There is increased LV wall thickness (IVSd 1.4 cm). There is normal LV segmental wall motion. Diastolic function is not evaluated in this study. LVEF is 60%. Right Ventricle Right ventricle is mildly dilated. The right ventricular systolic function is normal. Atria The left atrium size is normal. The right atrium size is normal. There is a likely Doppler evidence of interatrial shunt. Agitated saline at rest and with Valsalva are indeterminate due to technically difficult imaging. Aortic Valve The aortic valve is normal in structure. There is no aortic valvular stenosis. Trace aortic regurgitation is present. Mitral Valve The mitral valve is normal in structure. No evidence of mitral valve stenosis. Trace mitral regurgitation. Tricuspid Valve The tricuspid valve leaflets are thin and pliable. Trace tricuspid regurgitation. There is insufficient TR jet to estimate RVSP. Pulmonic Valve The pulmonary valve is normal in structure. Mild pulmonic regurgitation. Great Vessels The aortic root is normal in size. The ascending aorta is not well visualized. IVC is normal in size and collapses >50% with inspiration. Pericardium There is no pericardial effusion. Other Information Study Quality: Technically Difficult Conclusion This is a technically difficult study due to poor accoustic windows. Normal biventricular systolic function. Mild RV dilatation. Possible interatrial shunt on color Doppler. Agitated saline study at rest and with Valsalva are indeterminate due to technically difficult imaging. No significant valvular disease. Further shunt evaluation with ADRIANA is recommended. If shunt present, additional imaging with cardiac MRI to evaluate Qp:Qs ratio and RV size is also suggested. Electronically signed by : Marilu Ramsay, 04/26/2023 23:34:28
== END ==
PROVIDERS: PCP Student in an Organized Health Care Education/Training Program; Visit Provider Internal Medicine
DX: R06.00 Dyspnea, unspecified (principal); R07.9 Chest pain, unspecified; R00.2 Palpitations; I10 Essential (primary) hypertension; Z86.73 Personal history of transient ischemic attack (TIA), and cerebral infarction without residual deficits
CPT/HCPCS: 93306

== ENCOUNTER → 2023-05-29 09:50 | Outpatient (CLI) | payer OTHER, SELFPAY ==
[2023-05-29 18:46] LABS: Basophils % 0.3 % (0.1-2.0); Eosinophils # 0.1 K/mm3 (0.0-0.4); Eosinophils % 1.5 % (0.1-12.0); Hematocrit 43.7 % (42.0-52.0); Hemoglobin 14.9 g/dL (14.1-18.0); Lymphocytes # 1.5 K/mm3 (0.7-4.5); Lymphocytes % 20.1 % (10-50); Mean Corpuscular HGB Conc 34.2 g/dL (31.8-35.4); Mean Corpuscular Hemoglobin 29.4 pg (27.0-31.2); Mean Corpuscular Volume 85.9 fl (80-94); Mean Platelet Volume 9.9 fl (7.4-10.4); Monocytes # 0.3 K/mm3 (0.1-1.0); Monocytes % 4.1 % (1.7-9.3); Neutrophils # 5.7 K/mm3 (1.8-7.8); Platelet Count 168 K/mm3 (142-424); Red Blood Count 5.09 M/mm3 (4.60-6.20); Red Cell Distribution Width 13.4 % (11.5-17.5); White Blood Count 7.7 K/mm3 (4.8-10.8)
[2023-05-29 19:16] LABS: Alanine Aminotransferase 32 U/L (12-78); Albumin/Globulin Ratio 1.3 (1.1-1.8); Alkaline Phosphatase 96 U/L (38-126); Anion Gap 11.6 mEq/L (5-15); Aspartate Amino Transferase 28 U/L (17-59); Bilirubin,Total 0.8 mg/dl (0.2-1.3); Blood Urea Nitrogen 12 mg/dl (9-20); Calcium 9.2 mg/dl (8.4-10.2); Carbon Dioxide 28 mmol/L (22.0-30.0); Chloride 104 mmol/L (98-107); Chol/HDL Ratio 3.5 (1-3.5); Cholesterol 130 mg/dl (140-200); Estimated Glomerular Filt Rate 124 ml/min (>60); GFR (African American) 150 ML/MIN (>60); Globulin 3.1 g/dL (1.3-3.2); Glucose 111 mg/dl (74-100); HDL Cholesterol 37 mg/dl (40-60); Potassium 3.6 mmoL/L (3.5-5.1); Sodium 140 mmol/L (136-145); Total Protein,Serum 7.1 g/dl (6.3-8.2); Triglycerides 159 mg/dl (30-150); VLDL Cholesterol 32 mg/dL (0-40)
[2023-05-29 19:33] LABS: 25-OH Vitamin D, Total 32.1 ng/mL (30-100)
[2023-05-29 19:46] LABS: Thyroid Stimulating Hormone 1.84 uIU/mL (0.465-4.68)
[2023-05-29 22:07] LABS: Hemoglobin A1C 5.4 % (4.0-6.0)
[2023-05-31 11:50] LABS: Testosterone,Total 289 ng/dL (264-916)
[2023-06-06 15:35] LABS: Free Testosterone (Direct) 5.1 pg/mL (6.8-21.5); Testosterone, Total, LC/MS 298.9 ng/dL (264.0-916.0)
== END ==
PROVIDERS: PCP Student in an Organized Health Care Education/Training Program; Visit Provider Student in an Organized Health Care Education/Training Program
DX: I10 Essential (primary) hypertension; Z13.29 Encounter for screening for other suspected endocrine disorder; R53.83 Other fatigue; E78.5 Hyperlipidemia, unspecified; Z79.84 Long term (current) use of oral hypoglycemic drugs; Z68.42 Body mass index [BMI] 45.0-49.9, adult; Z72.0 Tobacco use
CPT/HCPCS: 80053; 80061; 82306; 83036; 84403; 84443; 85025

== ENCOUNTER 2023-06-15 08:14 | Day surgery (SDC) | payer OTHER, SELFPAY ==
[2023-06-12 09:46] VITALS: BMI 44.4
[2023-06-15] VITALS (9 sets, daily range): BP systolic 140–188; BP diastolic 91–97; PULSE 69–86; RESP 16–18; TEMP 36.6–36.8; O2SAT 93–98
--- NOTE | 2023-06-15 08:19 | CA_ITS ---
APPROVED REPORT EXAM: Comprehensive 2D, Doppler, and color-flow Echocardiogram Ssrs Report Developer: Charley Muir RVT Ht: 6 ft 0 in Wt: 346lbs BSA: 2.69 BP: 146/100 mmHg Indications: ? PFO SEEN ON BUBBLE STUDY,HX CVA,SOA Left Ventricle The left ventricle is normal size. The left ventricular systolic function is normal. The left ventricular ejection fraction is within the normal range. There is normal left ventricular wall thickness. There is normal LV segmental wall motion. LVEF is 55%. Right Ventricle The right ventricle is mildly dilated. The right ventricular systolic function is normal. Atria The left atrium size is normal. The right atrium size is normal. Interatrial septum is intact without evidence of ASD or PFO. There is no Doppler evidence of interatrial shunt. Agitated saline administration demonstrates bubbles in the left atrium beyond 8 cardiac cycles, suggestive of possible intrapulmonary shunt, but no intracardiac shunt. Aortic Valve The aortic valve is normal in structure. The valve is trileaflet. There is no aortic valvular stenosis. No aortic regurgitation is present. Mitral Valve There is mild prolapse of the posterior mitral valve leaflet. No evidence of mitral valve stenosis. Mild mitral regurgitation. Tricuspid Valve The tricuspid valve leaflets are thin and pliable. There is significant prolapse of the tricuspid valve leaflets. Moderate tricuspid regurgitation. The tricuspid regurgitant jet is very eccentric and is posteriorly directed. The TR jet (and RVSP) on spectral Doppler cannot be evaluated due to eccentric jet. TR EROA cannot be estimated due to eccentric jet. Pulmonic Valve The pulmonary valve is normal in structure. Trace pulmonic regurgitation. Great Vessels The aortic root is normal in size. The ascending aorta is normal in size. Pericardium There is no pericardial effusion. Other Information Study Quality: Adequate Conclusion Normal biventricular systolic function. Mild RV dilatation. Mild posterior MV leaflet prolapse, mild MR Significant prolapse of the tricuspid valve leaflets. Moderate TR. The TR jet is eccentric and is posteriorly directed. TR EROA cannot be estimated due to eccentric jet. Interatrial septum is intact without evidence of ASD or PFO. There is no Doppler evidence of interatrial shunt. Agitated saline administration demonstrates bubbles in the left atrium beyond 8 cardiac cycles, suggestive of possible intrapulmonary shunt, but no intracardiac shunt. Electronically signed by : Marilu Ramsay MD 06/15/2023 21:27:07
--- NOTE | 2023-06-15 08:33 | ECG_ITS ---
APPROVED REPORT Exam: Resting ECG HR:68 bpm ECG Measurements Heart Rate 68 AXES AR 204 P 29 QRSd 102 QRS 16 QT 408 T 34 QTc 425 Conclusion SINUS RHYTHM NORMAL ECG UNCONFIRMED REPORT Electronically signed by : Huan Patel MD 06/16/2023 14:48:38
[2023-06-15 09:02] LABS: POC Glucose,Bedside 123 (70-110)
--- NOTE | 2023-06-15 09:03 | EXP.ANES.CKL ---
[facility] Disclaimer: The information contained in this section may have been updated after the patient was seen, as this information can be updated by other users. 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 History of CVA (cerebrovascular accident) Minimal left-sided weakness if overdoing or fatigued Hx of arterial ischemic stroke Hyperlipidemia Hypertension Obesity JEWEL (obstructive sleep apnea) Prediabetes Surgical History No significant past surgical history Family History Other No significant family history Social History (Updated 06/15/23 @ 08:42 by Yahaira Patel RN) Smoking Status: Former smoker alcohol intake: former substance use type: former substance user and prescription drug current occupational status: employed Travel in the last 8 weeks: None household members: spouse housing: house marital status: number of children: 3 caffeine: Yes [facility] Anesthesia Checklist Patient Identification Patient Identification: Arm Band Structural Data Admitted From: Home Planned Operative Procedure/s: ADRIANA Consent for Planned Operative Procedure(s) Verified: Yes Verified Documents: Surgical Consent and History and Physical NPO Status Verified Time NPO: 00:00 Additional verifications Anesthesia Reactions: No Airway Assessment Mallampati Score:: Class II C-Spine Mobility Assessed: Yes TMJ Mobility Assessed: Yes Dentition: Good Dentition Neurological Assessment Level of Consciousness: Awake and Alert Anesthesia Plan Anesthesia Risk discussed: Yes Anesthesia Plan: Verified ASA Class: III Anesthesia Type: MAC
[2023-06-15 09:05] LABS: Chloride 104 mmol/L (98-107); Potassium 3.5 mmoL/L (3.5-5.1); Sodium 140 mmol/L (136-145)
[2023-06-15 09:07] LABS: Blood Urea Nitrogen 10 mg/dl (9-20); Creatinine Clearance Estimated 160 mL/min (50-200); Estimated Glomerular Filt Rate 124 ml/min (>60); GFR (African American) 150 ML/MIN (>60)
[2023-06-15 09:08] LABS: Anion Gap 9.5 mEq/L (5-15); Calcium 8.9 mg/dl (8.4-10.2); Carbon Dioxide 30 mmol/L (22.0-30.0); Glucose 129 mg/dl (74-100)
[2023-06-15 09:10] LABS: Basophils % 0.4 % (0.1-2.0); Eosinophils # 0.1 K/mm3 (0.0-0.4); Eosinophils % 0.9 % (0.1-12.0); Hematocrit 42.2 % (42.0-52.0); Lymphocytes # 1.7 K/mm3 (0.7-4.5); Lymphocytes % 19.4 % (10-50); Mean Corpuscular HGB Conc 35.6 g/dL (31.8-35.4); Mean Corpuscular Hemoglobin 30.8 pg (27.0-31.2); Mean Corpuscular Volume 86.5 fl (80-94); Mean Platelet Volume 8.7 fl (7.4-10.4); Monocytes # 0.3 K/mm3 (0.1-1.0); Monocytes % 3.3 % (1.7-9.3); Neutrophils # 6.7 K/mm3 (1.8-7.8); Platelet Count 153 K/mm3 (142-424); Red Blood Count 4.88 M/mm3 (4.60-6.20); White Blood Count 8.8 K/mm3 (4.8-10.8)
[2023-06-15 09:14] LABS: INR 1.04 (0.9-1.1); Prothrombin Time 11.2 seconds (10.1-12.5)
--- NOTE | 2023-06-15 10:36 | P.PNANES_ITS ---
[facility] Anesthesia Record Part I Anesthesia Record I Intake, IV Amount: 750 Hydration: Adequate Estimated blood loss (mL): 0 Urine output (mL): 0 Blood Products used (#): none Blood Pressure: 158/97 SaO2: 93 Pulse Rate: 86 Airway Patency: Patent Respiratory Rate: 18 Temperature: 97.9 F Patient is:: Awake (Talking) and Stable Stable to PACU at:: 10:30
== END 2023-06-15 11:30 | disposition home or self-care (01) ==
PROVIDERS: PCP Student in an Organized Health Care Education/Training Program; Visit Provider Internal Medicine
DX: I10 Essential (primary) hypertension (principal); R93.1 Abnormal findings on diagnostic imaging of heart and coronary circulation; R07.9 Chest pain, unspecified; R06.00 Dyspnea, unspecified; R00.2 Palpitations; E66.9 Obesity, unspecified; Z86.73 Personal history of transient ischemic attack (TIA), and cerebral infarction without residual deficits; E11.9 Type 2 diabetes mellitus without complications; Z79.899 Other long term (current) drug therapy
CPT/HCPCS: 80048; 82962; 85025; 85610; 93005; 93312; J2704

== ENCOUNTER 2023-09-01 17:58 | Outpatient (CLI) | payer OTHER, SELFPAY ==
[2023-09-01 18:32] LABS: Basophils % 0.2 % (0.1-2.0); Eosinophils % 0.1 % (0.1-12.0); Hematocrit 43.1 % (42.0-52.0); Hemoglobin 15.3 g/dL (14.1-18.0); Lymphocytes # 2.1 K/mm3 (0.7-4.5); Lymphocytes % 13.7 % (10-50); Mean Corpuscular HGB Conc 35.4 g/dL (31.8-35.4); Mean Corpuscular Hemoglobin 30.6 pg (27.0-31.2); Mean Corpuscular Volume 86.4 fl (80-94); Mean Platelet Volume 9.9 fl (7.4-10.4); Monocytes # 0.5 K/mm3 (0.1-1.0); Monocytes % 3.2 % (1.7-9.3); Neutrophils # 12.9 K/mm3 (1.8-7.8); Neutrophils % 82.8 % (37.0-80.0); Platelet Count 186 K/mm3 (142-424); Red Blood Count 4.99 M/mm3 (4.60-6.20); White Blood Count 15.6 K/mm3 (4.8-10.8)
[2023-09-01 18:36] LABS: Alanine Aminotransferase 26 U/L (12-78); Albumin Level 4.1 g/dl (3.5-5.0); Albumin/Globulin Ratio 1.4 (1.1-1.8); Alkaline Phosphatase 86 U/L (38-126); Aspartate Amino Transferase 25 U/L (17-59); Bilirubin,Total 0.6 mg/dl (0.2-1.3); Blood Urea Nitrogen 10 mg/dl (9-20); Carbon Dioxide 27 mmol/L (22.0-30.0); Chloride 100 mmol/L (98-107); Chol/HDL Ratio 3.2 (1-3.5); Cholesterol 146 mg/dl (140-200); Estimated Glomerular Filt Rate 148 ml/min (>60); GFR (African American) 179 ML/MIN (>60); Globulin 2.9 g/dL (1.3-3.2); Glucose 117 mg/dl (74-100); HDL Cholesterol 45 mg/dl (40-60); Sodium 136 mmol/L (136-145); Triglycerides 142 mg/dl (30-150); VLDL Cholesterol 28 mg/dL (0-40)
[2023-09-01 18:38] LABS: MANUAL DIFFERENTIAL MANUAL DIFFERENTIAL (MANUAL DIFF)
[2023-09-01 18:47] LABS: Direct LDL Cholesterol 77.17 mg/dL (100-129)
[2023-09-01 18:52] LABS: 25-OH Vitamin D, Total 37.3 ng/mL (30-100)
[2023-09-01 19:07] LABS: Thyroid Stimulating Hormone 0.62 uIU/mL (0.465-4.68)
[2023-09-01 19:25] LABS: Vitamin B12 309 pg/mL (239-931)
[2023-09-01 20:20] LABS: Lymphocytes % 17 % (10-50); Monocytes % 3 % (2-9); Neutrophils % 80 % (42-76); Platelet Estimate Normal; RBC Morphology Normal; Total Cells Counted 100
[2023-09-01 20:34] LABS: Hemoglobin A1C 5.2 % (4.0-6.0)
[2023-09-07 06:39] LABS: Testosterone, Total, LC/MS 296 ng/dL (.)
== END 2023-09-01 23:59 ==
LOC: LAB.DROPOF 17:58
PROVIDERS: PCP Student in an Organized Health Care Education/Training Program; Visit Provider Student in an Organized Health Care Education/Training Program
DX: R20.0 Anesthesia of skin (principal); R20.2 Paresthesia of skin; E55.9 Vitamin D deficiency, unspecified; R53.83 Other fatigue; Z13.29 Encounter for screening for other suspected endocrine disorder; E78.5 Hyperlipidemia, unspecified; I10 Essential (primary) hypertension; R73.03 Prediabetes
CPT/HCPCS: 80053; 80061; 82306; 82607; 83036; 84403; 84443; 85007; 85025

== ENCOUNTER 2023-09-05 17:21 | Emergency (ER) | payer OTHER, SELFPAY ==
[2023-09-05 17:50] VITALS: BP 155/91; PULSE 91; RESP 18; TEMP 37.6; O2SAT 97; BMI 41.3
[2023-09-05 17:53] LABS: UTC Influenza A Antigen Negative (Negative)
[2023-09-05 17:54] LABS: UTC Influenza B Antigen Negative (Negative)
--- NOTE | 2023-09-05 18:00 | ED_ITS ---
Discharge Plan Disposition Patient Disposition: Home, Self-Care Condition: Good Prescriptions Prescriptions: New benzonatate 100 mg capsule 100 mg PO TID PRN (Reason: cough) Qty: 30 0RF No Action rosuvastatin [Crestor] 20 mg tablet 20 mg PO DAILY Qty: 30 2RF amlodipine 5 mg tablet 5 mg PO DAILY Qty: 90 2RF aspirin 81 mg tablet,chewable 1 tab PO DAILY Qty: 90 3RF lisinopril-hydrochlorothiazide 20-25 mg tablet 1 tab PO DAILY Qty: 30 2RF loratadine 10 mg tablet 10 mg PO DAILY Qty: 60 2RF metoprolol succinate 100 mg tablet extended release 24 hr 50 mg PO DAILY Qty: 90 3RF tizanidine 4 mg capsule 4 mg PO HS PRN (Reason: muscle spasticity) Qty: 14 0RF Ozempic 1 mg/dose (4 mg/3 mL) pen injector 1 mg SQ WEEKLY 30 Days Qty: 3.75 4RF cholecalciferol (vitamin D3) 25 mcg (1,000 unit) tablet 25 mcg PO DAILY metformin 500 mg tablet 500 mg PO BID Patient Comments: TAKE ONE TABLET BY MOUTH TWICE DAILY Referrals Follow up/Referrals: Dipti Norton PA [Primary Care Provider] - See instructions Activity Restrictions/Add. Instructions Additional Instructions/Restrictions: If symptoms persist or worsen, follow up at [facility] or primary care provider. Clinical Impressions Clinical Impression: Viral upper respiratory tract infection with cough Instructions Patient Instructions: DI for Viral Upper Respiratory Infection -- Adult Discharge ED Provider: Yenny Junior [facility] HPI General Stated complaint: Headache, painful breathing, Feel bad Time Seen by Provider: 09/05/23 18:00 History of Present Illness Provider Complaint: Pt relates that since yesterday he has had a dry cough and not feeling well. He reports that he has had some body aches and low grade fever. 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 Related Data Home Medications Medication Instructions Recorded Confirmed cholecalciferol (vitamin D3) 25 25 mcg PO DAILY Supplement 06/15/23 09/05/23 mcg (1,000 unit) tablet metformin 500 mg tablet 500 mg PO BID 09/05/23 09/05/23 Previous Rx's Medication Instructions Recorded amlodipine 5 mg tablet 5 mg PO DAILY #90 tabs 04/28/23 aspirin 81 mg chewable tablet 1 tab PO DAILY #90 tabs 04/28/23 lisinopril 20 1 tab PO DAILY #30 tabs 04/28/23 mg-hydrochlorothiazide 25 mg tablet loratadine 10 mg tablet 10 mg PO DAILY allergies #60 tabs 04/28/23 metoprolol succinate 100 mg 50 mg PO DAILY #90 tabs 04/28/23 tablet,extended release 24 hr tizanidine 4 mg capsule 4 mg PO HS PRN muscle spasticity 04/28/23 #14 caps rosuvastatin 20 mg tablet (Crestor) 20 mg PO DAILY #30 tabs 05/14/23 semaglutide 1 mg/dose (4 mg/3 mL) 1 mg (0.75 mL) SQ WEEKLY 30 days 07/06/23 subcutaneous pen injector (Ozempic) #3.75 mL benzonatate 100 mg capsule 100 mg PO TID PRN cough #30 caps 09/05/23 Allergies Allergy/AdvReac Type Severity Reaction Status Date / Time codeine [CODEINE] Allergy Unknown -- Verified 09/05/23 18:10 Penicillins [PENICILLINS] Allergy Unknown -- Verified 09/05/23 18:10 [facility] Disclaimer: The information contained in this section may have been updated after the patient was seen, as this information can be updated by other users. 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 History of CVA (cerebrovascular accident) Minimal left-sided weakness if overdoing or fatigued Hx of arterial ischemic stroke Hyperlipidemia Hypertension Obesity JEWEL (obstructive sleep apnea) Prediabetes Surgical History No significant past surgical history Family History Other No significant family history Social History Smoking Status: Former smoker alcohol intake: former substance use type: former substance user and prescription drug current occupational status: employed Travel in the last 8 weeks: None household members: spouse housing: house marital status: number of children: 3 caffeine: Yes ROS Obtained: Yes All systems reviewed & no additional complaints except as documented Constitutional Constitutional: Reports system reviewed and no additional complaints, except as documented, Reports body ache, Reports chills, Reports fever(s) and Reports malaise Eyes Eyes: Reports system reviewed and no additional complaints, except as documented ENT Ears, Nose, Mouth, and Throat: Reports system reviewed and no additional complaints, except as documented Cardiovascular Cardiovascular: Reports system reviewed and no additional complaints, except as documented Respiratory Respiratory: Reports system reviewed and no additional complaints, except as documented and Reports non-productive cough Gastrointestinal Gastrointestingal: Reports system reviewed and no additional complaints, except as documented Genitourinary Male Genitourinary: Reports system reviewed and no additional complaints, except as documented and Reports urinary frequency Musculoskeletal Musculoskeletal: Reports system reviewed and no additional complaints, except as documented Integumentary/Breasts Skin/Breast: Reports system reviewed and no additional complaints, except as documented Neurologic Neurologic: Reports system reviewed and no additional complaints, except as documented Endocrine Endocrine: Reports system reviewed and no additional complaints, except as documented Hematologic/Lymphatic Henatologic/Lymphatic: Reports system reviewed and no additional complaints, except as documented Allergic/Immunologic Allergic/Immunologic: Reports system reviewed and no additional complaints, except as documented Physical Exam General General appearance: alert Comment: ill appearing Head Head exam: atraumatic and normocephalic Eye Eye exam: Present normal appearance ENT ENT exam: Present normal exam, normal oropharynx and mucous membranes moist Neck Neck exam: Present normal inspection; Absent lymphadenopathy Chest Chest inspection: Present normal inspection and symmetric chest wall rise Respiratory Respiratory exam: Present normal lung sounds bilaterally and other (strong cough noted) Cardiovascular Cardiovascular exam: Present regular rate and normal rhythm Abdominal Exam Abdominal exam: Present soft and normal bowel sounds Extremities Exam Extremities exam: Present normal inspection Back Exam Back exam: Present normal inspection Neurological Exam Neurological exam: Present alert and oriented X3 Psychiatric Psychiatric exam: Present normal affect and normal mood Skin Skin exam: Present warm, dry and intact Lymphatic Lymphatic Findings: no adenopathy Medical Decision Making Ricco Inquiry Pt receiving controlled substance: No Ricco was queried for this patient: No Lab Data Lab results reviewed: Yes I reviewed the patient's lab results. Lab Results 09/05/23 17:53: Influenza Type A Ag Negative, Influenza Type B Ag Negative
[2023-09-05 18:27] VITALS: BP 155/91; PULSE 91; RESP 18; TEMP 37.6; O2SAT 97
[2023-09-05 18:30] LABS: Adenovirus,PCR Not Detected (NotDetected); Coronavirus 19, PCR Not Detected (NotDetected); Coronavirus 229E Not Detected (NotDetected); Coronavirus NL63 Not Detected (NotDetected); Coronavirus OC43 Not Detected (NotDetected); Coronovirus HKU1,PCR Not Detected (NotDetected); Human Metapneumovirus Not Detected (NotDetected); Influenza A, PCR Not Detected (NotDetected); Influenza AH1, 2009 Not Detected (NotDetected); Influenza AH1, PCR Not Detected (NotDetected); Influenza AH3,PCR Not Detected (NotDetected); Influenza B, PCR Not Detected (NotDetected); Parainfluenza 1, PCR Not Detected (NotDetected); Parainfluenza 2, PCR Not Detected (NotDetected); Parainfluenza 3, PCR Not Detected (NotDetected); Parainfluenza 4, PCR Not Detected (NotDetected); Respiratory Syncytial Virus Not Detected (NotDetected); Rhinovirus/Enterovirus Not Detected (NotDetected)
== END 2023-09-05 18:27 | disposition home or self-care (01) ==
PROVIDERS: Emergency Provider Nurse Practitioner Family; PCP Student in an Organized Health Care Education/Training Program
DX: R05.9 Cough, unspecified (principal); R07.1 Chest pain on breathing; R50.9 Fever, unspecified; J06.9 Acute upper respiratory infection, unspecified; M79.18 Myalgia, other site; B34.9 Viral infection, unspecified; R51.9 Headache, unspecified; E78.5 Hyperlipidemia, unspecified; I10 Essential (primary) hypertension
CPT/HCPCS: 87632; 87635; 87804; 99212; 99214; G0463

== ENCOUNTER 2023-09-07 18:07 | Outpatient (CLI) | payer OTHER, SELFPAY | END 2023-09-07 23:59 | LOC: LAB.DROPOF 18:07 | PROVIDERS: PCP Student in an Organized Health Care Education/Training Program; Visit Provider Student in an Organized Health Care Education/Training Program | DX: R05.1 Acute cough (principal); R09.81 Nasal congestion; R09.82 Postnasal drip; R06.02 Shortness of breath; J02.9 Acute pharyngitis, unspecified; Z87.891 Personal history of nicotine dependence | CPT/HCPCS: 87070 ==

== ENCOUNTER 2024-08-13 10:36 | Emergency (ER) | payer OTHER, SELFPAY ==
[2024-08-13 11:57] VITALS: BP 0/0; PULSE 0; RESP 0; TEMP -17.7; TEMP 0
== END 2024-08-13 11:58 | disposition left against medical advice (07) ==
LOC: UTC 10:41
PROVIDERS: Emergency Provider Nurse Practitioner Family; PCP Internal Medicine Adolescent Medicine
DX: Z53.21 Procedure and treatment not carried out due to patient leaving prior to being seen by health care provider (principal)

== ENCOUNTER 2024-10-26 14:53 | Emergency (ER) | payer OTHER, SELFPAY ==
[2024-10-26] VITALS (9 sets, daily range): BP systolic 123–161; BP diastolic 1–86; PULSE 78–114; RESP 16–21; TEMP 36.6–36.7; O2SAT 93–98; BMI 43.8
--- NOTE | 2024-10-26 14:55 | ECG_ITS ---
APPROVED REPORT Exam: Resting ECG HR:115 bpm ECG Measurements Heart Rate 115 AXES TN 178 P 68 QRSd 101 QRS 49 QT 341 T 53 QTc 409 Conclusion SINUS TACHYCARDIA WITH OCCASIONAL VENTRICULAR PREMATURE COMPLEXES NONSPECIFIC T-WAVE ABNORMALITY ABNORMAL RHYTHM ECG UNCONFIRMED REPORT Electronically signed by : TK DOYLE, 10/27/2024 06:51:48
--- NOTE | 2024-10-26 15:05 | ED_ITS ---
<Statement entered by Gabriella West DO - 10/27/24 00:31> I was consulted by the GRACE, and we discussed the complexity of the problems being addressed. I approved the treatment and management plan for this patient's care in the emergency department, thus performing a substantive portion of the medical decision making. Gabriella West DO Discharge Plan Disposition Patient Disposition: Home, Self-Care Condition: Good Prescriptions Prescriptions: No Action tizanidine 4 mg capsule 4 mg PO HS PRN (Reason: muscle spasticity) Qty: 14 0RF albuterol sulfate 2.5 mg /3 mL (0.083 %) solution for nebulization 2.5 mg inhalation Q6H Qty: 75 0RF azithromycin [Zithromax Z-Agapito] 250 mg tablet See Rx Instructions PO .COMPLEX Qty: 6 0RF Rx Instructions: For 250 mg dose pack: take 500 mg today (day 1), then 250 mg for 4 days (days 2-5) PO guaifenesin 400 mg tablet 400 mg PO QID Qty: 120 0RF amlodipine 10 mg tablet 10 mg PO DAILY Qty: 90 3RF rosuvastatin [Crestor] 20 mg tablet 20 mg PO DAILY Qty: 30 11RF Ozempic 1 mg/dose (4 mg/3 mL) pen injector 1 mg SQ WEEKLY 30 Days Qty: 3.75 4RF loratadine 10 mg tablet 10 mg PO DAILY Qty: 60 2RF aspirin 81 mg tablet,chewable 1 tab PO DAILY Qty: 90 3RF metoprolol succinate 100 mg tablet extended release 24 hr 50 mg PO DAILY Qty: 90 3RF lisinopril-hydrochlorothiazide 20-25 mg tablet 1 tab PO DAILY Qty: 30 2RF cholecalciferol (vitamin D3) 25 mcg (1,000 unit) tablet 25 mcg PO DAILY Qty: 30 2RF metformin 500 mg tablet 500 mg PO BID Patient Comments: TAKE ONE TABLET BY MOUTH TWICE DAILY Referrals Follow up/Referrals: Provider,MD Eugenio [Primary Care Provider] - See instructions Anthony Ramsay MD [Staff Physician] - See instructions Activity Restrictions/Add. Instructions Additional Instructions/Restrictions: As we discussed please refrain from further marijuana use. I have referred to cardiology because you do have risk factors and would benefit from further workup. Please call to make appointment in the morning. If you have continued new or worsening signs or symptoms follow-up with your PCP return to the ER as needed. Clinical Impressions Clinical Impression: Chest pain Cannabis intoxication Qualifiers: Complication of substance-induced condition: with perceptual disturbance Q ualified Code(s): F12.922 - Cannabis use, unspecified with intoxication with perceptual disturbance Print Language Print Language: [place] Discharge ED Provider: Gabriella West HPI <CHETAN Cole - Last Filed: 10/27/24 00:00> General Chief Complaint: Chest Pain Stated Complaint: CHEST PAIN Time Seen by Provider: 10/26/24 15:04 History of Present Illness HPI narrative: Patient reportPatient presents for evaluation initially of chest pain. He has a long history of alcohol abuse and actually has been trying to discontinue. He is last drink was well over a week ago. He started feeling however some cravings and so a friend recommended that he try a THC gummy. This was a dispensary grade THC gummy with 175 milligrams of THC around 2:00. Patient reports around an hour later he started feeling weird . He reports that he has distorted sensation dry mouth and he feels like he is paranoid that he is having a heart attack or stroke. He denies however actually having shortness of breath fever chills hemoptysis hematochezia melena nausea vomiting diarrhea or focal neurologic deficits. Related Data Home Medications ?Medication ?Instructions ?Recorded ?Confirmed metformin 500 mg tablet 500 mg PO BID 09/05/23 03/14/24 Previous Rx's ?Medication ?Instructions ?Recorded tizanidine 4 mg capsule 4 mg PO HS PRN muscle spasticity 04/28/23 #14 caps albuterol sulfate 2.5 mg/3 mL 2.5 mg (3 mL) inhalation Q6H #75 mL 09/07/23 (0.083 %) solution for nebulization rosuvastatin 20 mg tablet (Crestor) 20 mg PO DAILY #30 tabs 10/23/23 semaglutide 1 mg/dose (4 mg/3 mL) 1 mg (0.75 mL) SQ WEEKLY 30 days 01/21/24 subcutaneous pen injector (Ozempic) #3.75 mL amlodipine 10 mg tablet 10 mg PO DAILY #90 tabs 03/14/24 azithromycin 250 mg tablet See Rx Instructions PO .COMPLEX #6 03/14/24 (Zithromax Z-Agapito) tabs guaifenesin 400 mg tablet 400 mg PO QID #120 tabs 03/14/24 loratadine 10 mg tablet 10 mg PO DAILY allergies #60 tabs 04/28/24 aspirin 81 mg chewable tablet 1 tab PO DAILY #90 tabs 05/03/24 metoprolol succinate 100 mg 50 mg (1/2 x 100 mg) PO DAILY #90 05/03/24 tablet,extended release 24 hr tabs lisinopril 20 1 tab PO DAILY #30 tabs 08/25/24 mg-hydrochlorothiazide 25 mg tablet cholecalciferol (vitamin D3) 25 25 mcg PO DAILY Supplement #30 tabs 09/19/24 mcg (1,000 unit) tablet Allergies Allergy/AdvReac Type Severity Reaction Status Date / Time codeine (CODEINE) Allergy Unknown -- Verified 10/26/24 15:17 Penicillins (PENICILLINS) Allergy Unknown -- Verified 10/26/24 15:17 [facility] <CHETAN Cole - Last Filed: 10/27/24 00:00> [facility] Disclaimer: The information contained in this section may have been updated after the patient was seen, as this information can be updated by other users. Medical History Hyperlipidemia Abnormal echocardiogram Prediabetes Obesity Hx of arterial ischemic stroke Drug-induced erectile dysfunction Erectile dysfunction Dyspnea Herniation of intervertebral disc of lumbar region Deviated septum JEWEL (obstructive sleep apnea) History of CVA (cerebrovascular accident) Minimal left-sided weakness if overdoing or fatigued Hypertension Surgical History No significant past surgical history Family History Other No significant family history Social History Smoking Status: Never smoker alcohol intake: former substance use type: former substance user and prescription drug current occupational status: employed Travel in the last 8 weeks: None household members: spouse housing: house marital status: number of children: 3 caffeine: Yes Have you lived/traveled outside US in past 30 days?: No Contact w/someone who lives/traveled outside US past 30 days?: No Exposure to someone with infectious disease in past 14 days?: No Do you have a fever (greater than 100.4 F or 38 C)?: No Have you tested positive for COVID-19: No Exposed to someone with COVID-19 in past 14 days?: No Do you have a sore throat?: No Do you have a cough?: No Do you have any weakness?: No Do you have any diarrhea?: No Are you experiencing any unusual bleeding?: No Do you have any muscle aches/pain?: No Do you have any abdominal pain?: No Are you experiencing loss of taste or smell?: No Other Medical History Have you received the Flu Vaccine for this season: No Have you received the Pneumonia Vaccine: No <CHETAN Cole - Last Filed: 10/27/24 00:00> ROS Obtained: Yes Systems reviewed as appropriate & no additional complaints except as documented Physical Exam <CHETAN Cole - Last Filed: 10/27/24 00:00> General General appearance: appears intoxicated and anxious Respiratory Respiratory exam: Present normal lung sounds bilaterally Cardiovascular Cardiovascular exam: Present tachycardia Neurological Exam Neurological exam: Present oriented X3 (He is oriented to person place and circumstance and gives a reliable history); Absent alert (Patient is awake but somewhat intoxicated but follows commands and is interactive) HEART Score <CHETAN Cole Last Filed: 10/27/24 00:00> HEART Score HEART Score assessment performed?: Yes History (anamnesis): Slightly suspicious ECG: Non-specific disturbance Age: <45 years Risk factors: 3 or more risk factors Troponin: </= normal limit HEART Score: 3 Critical Care <CHETAN Cole Last Filed: 10/27/24 00:00> Critical Care Time Critical Care Time: No Medical Decision Making <CHETAN Cole Last Filed: 10/27/24 00:00> Medical Records Medical records reviewed: Yes I reviewed the patient's medical records. Ricco Colin Pt receiving controlled substance: No Vital Signs Vital Signs: 10/26/24 15:06 10/26/24 15:31 10/26/24 16:01 Temperature 98.1 F Temperature Source Oral Pulse Rate 97 H 82 Pulse Rate [Left] 114 H Respiratory Rate 18 16 21 Blood Pressure 151/1 H 135/65 Blood Pressure [Right Arm] 161/86 H Blood Pressure Mean [Right Arm] 111 Blood Pressure Source [Right Arm] Automatic Cuff Blood Pressure Position Blood Pressure Position [Right Arm] Sitting 02 Sat by Pulse Oximetry 98 96 96 Oxygen Delivery Method Room Air Room Air Room Air 10/26/24 16:31 10/26/24 17:01 10/26/24 17:31 Temperature Temperature Source Pulse Rate 78 79 85 Pulse Rate [Left] Respiratory Rate 19 17 16 Blood Pressure 150/74 H 143/53 H 144/83 H Blood Pressure [Right Arm] Blood Pressure Mean [Right Arm] Blood Pressure Source [Right Arm] Blood Pressure Position Blood Pressure Position [Right Arm] 02 Sat by Pulse Oximetry 94 L 95 96 Oxygen Delivery Method Room Air Room Air Room Air 10/26/24 18:01 10/26/24 18:31 10/26/24 19:29 Temperature 98 F Temperature Source Pulse Rate 84 81 84 Pulse Rate [Left] Respiratory Rate 19 21 20 Blood Pressure 135/72 123/69 123/69 Blood Pressure [Right Arm] Blood Pressure Mean [Right Arm] Blood Pressure Source [Right Arm] Blood Pressure Position Sitting Blood Pressure Position [Right Arm] 02 Sat by Pulse Oximetry 94 L 93 L Oxygen Delivery Method Room Air Room Air Room Air Lab Data Lab results reviewed: Yes I reviewed the patient's lab results. Labs: Lab Results 10/26/24 14:55: WBC 9.3, RBC 5.23, Hgb 15.1, Hct 42.6, MCV 81.5, MCH 28.9, MCHC 35.4, RDW 12.1, Plt Count 201, MPV 11.0 H, Neut % (Auto) 54.6, Lymph % (Auto) 35.6, [place] % (Auto) 7.1, Eos % (Auto) 1.9, Baso % (Auto) 0.5, Neut # (Auto) 5.0, Lymph # (Auto) 3.3, [place] # (Auto) 0.7, Eos # (Auto) 0.2, Baso # (Auto) 0.1, D- Dimer 0.40, Sodium 140, Potassium 3.5, Chloride 102, Carbon Dioxide 28, Anion Gap 13.5, BUN 15, Creatinine 0.80, Estimated Creat Clear 146, Estimated GFR 106, Est GFR ( Amer) 128, Glucose 116 H, Calcium 9.2, Magnesium 1.8, Total Bilirubin 0.8, AST 35, ALT 38, Alkaline Phosphatase 86, Troponin I < 0.01, NT-Pro-B Natriuret Pep < 20.0, Total Protein 8.0, Albumin 5.0, Globulin 3.0, Albumin/Globulin Ratio 1.7, Lipase 72, Procalcitonin 0.054, TSH 1.33, Free T4 Index 2.7 L, Thyroxine (T4) 8.9, T3 Uptake 30, HCV Ab ALEN w/Rflx PCR Qn Negative, HIV Ag/Ab Combo Qual Negative 10/26/24 17:46: Troponin I < 0.01 10/26/24 19:02: Urine Color Yellow, Urine Appearance Clear, Urine pH 7.0, Ur Specific Clark 1.020, Urine Protein Negative, Urine Glucose (UA) Negative, Urine Ketones Negative, Urine Blood Negative, Urine Nitrate Negative, Urine Bilirubin Negative, Urine Urobilinogen 1.0, Ur Leukocyte Esterase Negative, Urine RBC None, Urine WBC Occasional, Ur Squamous Epith Cells None, Urine Bacteria Trace, Urine Mucus Trace, Urine Opiates Screen Negative, Urine Methadone Screen Negative, Ur Barbituates Screen Negative, Ur Phencyclidine Scrn Negative, Ur Amphetamines Screen Negative, U Benzodiazepines Scrn Negative, Urine Cocaine Screen Negative, U Marijuana (THC) Screen Positive H 10/26/24 14:55 10/26/24 14:55 Response Orders (Tests/Meds): ED MEDICATIONS Discontinued Medications Generic Name Dose Route Start Last Admin Trade Name Freq PRN Reason Stop Dose Admin Acetaminophen 1,000 mg 10/26/24 15:50 10/26/24 16:11 Acetaminophen 1,000mg/100ml Vial IV 10/26/24 15:51 1,000 mg ONCE ONE Administration Sodium Chloride 1,000 mls @ 999 mls/hr 10/26/24 15:50 10/26/24 16:11 Sod Chlor 0.9% 1000ml Bag IV 10/26/24 16:50 999 mls/hr .Q1H1M ONE Administration Ondansetron HCl 4 mg 10/26/24 15:50 10/26/24 16:11 Ondansetron 4mg/2ml Vial IV 10/26/24 15:51 4 mg ONCE ONE Administration Ondansetron HCl 4 mg 10/26/24 16:25 10/26/24 16:27 Ondansetron 4mg/2ml Vial IV 10/26/24 16:26 4 mg ONCE ONE Administration ORDERS Category Date Time Status XR chest portable Stat Exams 10/26/24 15:50 Completed BNP [NT Pro Brain Natriuretic Pep.] Stat Lab 10/26/24 14:55 Completed CBC w/Auto Diff [Complete Blood Count Auto Diff] Stat Lab 10/26/24 14:55 Completed CMP [Comprehensive Metabolic Panel] Stat Lab 10/26/24 14:55 Completed D-Dimer Stat Lab 10/26/24 14:55 Completed HIV Combo Stat Lab 10/26/24 14:55 Completed Hepatitis C Ab Qual. W/ RFX Stat Lab 10/26/24 14:55 Completed Lipase Stat Lab 10/26/24 14:55 Completed Magnesium Stat Lab 10/26/24 14:55 Completed Procalcitonin Stat Lab 10/26/24 14:55 Completed Thyroid Panel Stat Lab 10/26/24 14:55 Completed Trop I [Troponin I] Stat Lab 10/26/24 14:55 Completed Troponin I Q3H Lab 10/26/24 17:46 Completed UA [Urinalysis and Microscopic] Stat Lab 10/26/24 19:02 Completed UDS [Drug Screen,Urine] Stat Lab 10/26/24 19:02 Completed MDM Narrative Medical Decision Narrative: In summary patient is a 44-year-old male who presents to the emergency department for evaluation of initially chest pain. Patient is hypertensive with a blood pressure 161/86 tachycardic at 114 with sinus tachycardia the bedside monitor breathing 18 times a minute satting at 98% on room air upon arrival, febrile at 90.1. Physical exam is remarkable for clear breath sounds with no adventitious sounds or increased work of breathing, normal heart sounds S1-S2 regular rate and rhythm without murmurs gallops rubs or thrills or dependent edema noted. Abdomen soft nontender no rebound or guarding no rigidity. Bowel sounds normal active. Patient has a Emmanuel Coma Score 15 however he is obviously impaired and acknowledges taking 175 mg of THC.. Differential diagnosis includes ACS versus PE versus cannabinoid intoxication with delirium etc. Initial workup will be conducted with hematologic labs twelve-lead EKG Initial interventions include crystalloid bolus Toradol Tylenol Zofran. Initial workup reviewed by me shows that his hematologic labs are nonactionable and reassuring including normal white count normal H&H negative D-dimer and my informal interpretation of his film chest x-ray shows no acute processes and his initial troponin was negative and undetectable. Given this patient was placed in observation status at 1630. Medical necessity for observational status is troponins and observation for metabolization of cannabis intoxication. The patient was provided serial reevaluations continuous cardiac monitoring pulse oximetry while awaiting results. Second troponin ultimately was also undetectable. Upon reevaluation patient had completely recovered and metabolized the cannabis and is tolerating oral intake. Given this patient is appropriate for discharge I have recommended that he follow-up with cardiology as an outpatient and avoid medical grade cannabis in the future unless he has his own prescription. Total time in observation was 2 and half hours. <Gabriella West, DO - Last Filed: 10/26/24 15:12> Vital Signs Vital Signs: 10/26/24 15:06 10/26/24 15:31 10/26/24 16:01 Temperature 98.1 F Temperature Source Oral Pulse Rate 97 H 82 Pulse Rate [Left] 114 H Respiratory Rate 18 16 21 Blood Pressure 151/1 H 135/65 Blood Pressure [Right Arm] 161/86 H Blood Pressure Mean [Right Arm] 111 Blood Pressure Source [Right Arm] Automatic Cuff Blood Pressure Position Blood Pressure Position [Right Arm] Sitting 02 Sat by Pulse Oximetry 98 96 96 Oxygen Delivery Method Room Air Room Air Room Air 10/26/24 16:31 10/26/24 17:01 10/26/24 17:31 Temperature Temperature Source Pulse Rate 78 79 85 Pulse Rate [Left] Respiratory Rate 19 17 16 Blood Pressure 150/74 H 143/53 H 144/83 H Blood Pressure [Right Arm] Blood Pressure Mean [Right Arm] Blood Pressure Source [Right Arm] Blood Pressure Position Blood Pressure Position [Right Arm] 02 Sat by Pulse Oximetry 94 L 95 96 Oxygen Delivery Method Room Air Room Air Room Air 10/26/24 18:01 10/26/24 18:31 10/26/24 19:29 Temperature 98 F Temperature Source Pulse Rate 84 81 84 Pulse Rate [Left] Respiratory Rate 19 21 20 Blood Pressure 135/72 123/69 123/69 Blood Pressure [Right Arm] Blood Pressure Mean [Right Arm] Blood Pressure Source [Right Arm] Blood Pressure Position Sitting Blood Pressure Position [Right Arm] 02 Sat by Pulse Oximetry 94 L 93 L Oxygen Delivery Method Room Air Room Air Room Air Lab Data Labs: Lab Results 10/26/24 14:55: WBC 9.3, RBC 5.23, Hgb 15.1, Hct 42.6, MCV 81.5, MCH 28.9, MCHC 35.4, RDW 12.1, Plt Count 201, MPV 11.0 H, Neut % (Auto) 54.6, Lymph % (Auto) 35.6, [place] % (Auto) 7.1, Eos % (Auto) 1.9, Baso % (Auto) 0.5, Neut # (Auto) 5.0, Lymph # (Auto) 3.3, [place] # (Auto) 0.7, Eos # (Auto) 0.2, Baso # (Auto) 0.1, D- Dimer 0.40, Sodium 140, Potassium 3.5, Chloride 102, Carbon Dioxide 28, Anion Gap 13.5, BUN 15, Creatinine 0.80, Estimated Creat Clear 146, Estimated GFR 106, Est GFR ( Amer) 128, Glucose 116 H, Calcium 9.2, Magnesium 1.8, Total Bilirubin 0.8, AST 35, ALT 38, Alkaline Phosphatase 86, Troponin I < 0.01, NT-Pro-B Natriuret Pep < 20.0, Total Protein 8.0, Albumin 5.0, Globulin 3.0, Albumin/Globulin Ratio 1.7, Lipase 72, Procalcitonin 0.054, TSH 1.33, Free T4 Index 2.7 L, Thyroxine (T4) 8.9, T3 Uptake 30, HCV Ab ALEN w/Rflx PCR Qn Negative, HIV Ag/Ab Combo Qual Negative 10/26/24 17:46: Troponin I < 0.01 10/26/24 19:02: Urine Color Yellow, Urine Appearance Clear, Urine pH 7.0, Ur Specific Clark 1.020, Urine Protein Negative, Urine Glucose (UA) Negative, Urine Ketones Negative, Urine Blood Negative, Urine Nitrate Negative, Urine Bilirubin Negative, Urine Urobilinogen 1.0, Ur Leukocyte Esterase Negative, Urine RBC None, Urine WBC Occasional, Ur Squamous Epith Cells None, Urine Bacteria Trace, Urine Mucus Trace, Urine Opiates Screen Negative, Urine Methadone Screen Negative, Ur Barbituates Screen Negative, Ur Phencyclidine Scrn Negative, Ur Amphetamines Screen Negative, U Benzodiazepines Scrn Negative, Urine Cocaine Screen Negative, U Marijuana (THC) Screen Positive H Response Orders (Tests/Meds): ED MEDICATIONS Discontinued Medications Generic Name Dose Route Start Last Admin Trade Name Ebony PRN Reason Stop Dose Admin Acetaminophen 1,000 mg 10/26/24 15:50 10/26/24 16:11 Acetaminophen 1,000mg/100ml Vial IV 10/26/24 15:51 1,000 mg ONCE ONE Administration Sodium Chloride 1,000 mls @ 999 mls/hr 10/26/24 15:50 10/26/24 16:11 Sod Chlor 0.9% 1000ml Bag IV 10/26/24 16:50 999 mls/hr .Q1H1M ONE Administration Ondansetron HCl 4 mg 10/26/24 15:50 10/26/24 16:11 Ondansetron 4mg/2ml Vial IV 10/26/24 15:51 4 mg ONCE ONE Administration Ondansetron HCl 4 mg 10/26/24 16:25 10/26/24 16:27 Ondansetron 4mg/2ml Vial IV 10/26/24 16:26 4 mg ONCE ONE Administration ORDERS Category Date Time Status XR chest portable Stat Exams 10/26/24 15:50 Completed BNP [NT Pro Brain Natriuretic Pep.] Stat Lab 10/26/24 14:55 Completed CBC w/Auto Diff [Complete Blood Count Auto Diff] Stat Lab 10/26/24 14:55 Completed CMP [Comprehensive Metabolic Panel] Stat Lab 10/26/24 14:55 Completed D-Dimer Stat Lab 10/26/24 14:55 Completed HIV Combo Stat Lab 10/26/24 14:55 Completed Hepatitis C Ab Qual. W/ RFX Stat Lab 10/26/24 14:55 Completed Lipase Stat Lab 10/26/24 14:55 Completed Magnesium Stat Lab 10/26/24 14:55 Completed Procalcitonin Stat Lab 10/26/24 14:55 Completed Thyroid Panel Stat Lab 10/26/24 14:55 Completed Trop I [Troponin I] Stat Lab 10/26/24 14:55 Completed Troponin I Q3H Lab 10/26/24 17:46 Completed UA [Urinalysis and Microscopic] Stat Lab 10/26/24 19:02 Completed UDS [Drug Screen,Urine] Stat Lab 10/26/24 19:02 Completed ECG Data Tracing #1: Attestation: I reviewed this ECG and interpreted as documented below: ECG Narrative: Sinus tachycardia with a ventricular rate of [address] changes concerning for ischemia. PVC noted. Normal intervals ECG initial impression date: 10/26/24 ECG initial impression time: 14:56
--- NOTE | 2024-10-26 15:50 | XR_ITS ---
PROCEDURE INFORMATION: Exam: XR Chest Exam date and time: 10/26/2024 4:34 PM Age: 44 years old Clinical indication: Sternal or substernal pain; Additional info: Chest pain TECHNIQUE: Imaging protocol: Radiologic exam of the chest. Views: 1 view. COMPARISON: CR XR CHEST PORTABLE 03/23/2022 6:50 AM FINDINGS: Lungs: Pulmonary vascular congestion. No acute airspace consolidation. Pleural spaces: Unremarkable. No pleural effusion. No pneumothorax. Heart/Mediastinum: Mild cardiac enlargement. Bones/joints: Unremarkable. IMPRESSION: Cardiomegaly and pulmonary vascular congestion.
[2024-10-26 16:04] LABS: Basophils # 0.1 K/mm3 (0-0.2); Basophils % 0.5 % (0.1-2.0); Eosinophils # 0.2 K/mm3 (0.0-0.4); Eosinophils % 1.9 % (0.1-12.0); Hematocrit 42.6 % (42.0-52.0); Hemoglobin 15.1 g/dL (14.1-18.0); Lymphocytes # 3.3 K/mm3 (0.7-4.5); Lymphocytes % 35.6 % (10-50); Mean Corpuscular HGB Conc 35.4 g/dL (31.8-35.4); Mean Corpuscular Hemoglobin 28.9 pg (27.0-31.2); Mean Corpuscular Volume 81.5 fl (80-94); Monocytes # 0.7 K/mm3 (0.1-1.0); Monocytes % 7.1 % (1.7-9.3); Neutrophils % 54.6 % (37.0-80.0); Platelet Count 201 K/mm3 (142-424); Red Blood Count 5.23 M/mm3 (4.60-6.20); Red Cell Distribution Width 12.1 % (11.5-17.5); White Blood Count 9.3 K/mm3 (4.8-10.8)
[2024-10-26 16:08] LABS: Alanine Aminotransferase 38 U/L (12-78); Albumin/Globulin Ratio 1.7 (1.1-1.8); Alkaline Phosphatase 86 U/L (38-126); Anion Gap 13.5 mEq/L (5-15); Aspartate Amino Transferase 35 U/L (17-59); Bilirubin,Total 0.8 mg/dl (0.2-1.3); Blood Urea Nitrogen 15 mg/dl (9-20); Calcium 9.2 mg/dl (8.4-10.2); Carbon Dioxide 28 mmol/L (22.0-30.0); Chloride 102 mmol/L (98-107); Creatinine Clearance Estimated 146 mL/min (50-200); Estimated Glomerular Filt Rate 106 ml/min (>60); GFR (African American) 128 ML/MIN (>60); Glucose 116 mg/dl (74-100); Lipase 72 U/L (23-300); Magnesium 1.8 mg/dl (1.6-2.3); Potassium 3.5 mmoL/L (3.5-5.1); Sodium 140 mmol/L (136-145)
[2024-10-26] MEDS: ACETAMINOPHEN 1,000MG/100ML VIAL 1000 MG IV (16:11)
[2024-10-26] MEDS: ONDANSETRON 4MG/2ML VIAL 4 MG IV ×2 (16:11→16:27)
[2024-10-26] MEDS: 0.9 % SODIUM CHLORIDE 1000ML 1,000 ML 999 ML IV (16:11)
[2024-10-26 16:21] LABS: NT Pro Brain Natriuretic Pep. < 20.0 pg/mL (0-125)
[2024-10-26 16:23] LABS: Troponin I < 0.01 ng/ml (0.00-0.034)
[2024-10-26 16:26] LABS: Procalcitonin 0.054 ng/mL (0.0-2.0)
--- NOTE | 2024-10-26 16:26 | PC.NURSE ---
Pt has returned from radiology. He was unable to get his xrays due to N/V. myself and Calderon BENTON went to radiology to speak with the pt. GRACE is giving another dose of zofran to attempt to get his N/V under control.
[2024-10-26 16:28] LABS: Free Thyroxine Index 2.7 ug/dL (5.93-13.13); T4 (Thyroxine) 8.9 ug/dl (5.53-11.0); Triiodothryronine (T3) Uptake 30 % (23.5-40.5)
--- NOTE | 2024-10-26 16:29 | PC.NURSE ---
pt medicated for N/V. pt given warm blankets for comfort. no other needs voiced. no new complaints. call peterson in reach.
[2024-10-26 16:41] LABS: Thyroid Stimulating Hormone 1.33 uIU/mL (0.465-4.68)
--- NOTE | 2024-10-26 17:28 | PC.NURSE ---
PT WAS PROVIDED A URINAL FOR UA SAMPLE UNABLE TO URINATE AT THIS TIME
--- NOTE | 2024-10-26 18:12 | PC.NURSE ---
I spoke to Abi in lab to inquire on second trop. She states it will be thirty minutes.
[2024-10-26 18:37] LABS: Troponin I < 0.01 ng/ml (0.00-0.034)
[2024-10-26 19:07] LABS: Microscopic, Urine URINE MICROSCOPIC (MICROSCOPIC)
[2024-10-26 19:26] LABS: Benzodiazepines Screen,Urine Negative ng/ml (<200)
[2024-10-26 19:27] LABS: Amphetamine/Metha Screen,Urine Negative ng/ml (<1000); Barbiturates Screen,Urine Negative ng/ml (<200)
[2024-10-26 19:28] LABS: Cannabinoid Screen,Urine Positive ng/ml (<50)
[2024-10-26 19:29] LABS: Cocaine Screen,Urine Negative ng/ml (<300); Methadone Screen,Urine Negative ng/ml (<300)
[2024-10-26 19:30] LABS: Opiate Screen,Urine Negative ng/ml (<300)
[2024-10-26 19:31] LABS: Appearance,Urine CLEAR (Clear); Bilirubin,Urine Negative (Negative); Blood, Urine Negative (Negative); Color,Urine YELLOW (Yellow); Glucose,Urine (UA) Negative (Negative); Ketones,Urine Negative (Negative); Leukocyte Esterase,Urine Negative (Negative); Nitrate,Urine Negative (Negative); Protein,Urine Negative (Negative)
[2024-10-26 19:33] LABS: Phencyclidine Screen,Urine Negative ng/ml (<25)
[2024-10-26 21:40] LABS: WBC,Urine Occasional #/hpf (0-3)
[2024-10-26 21:41] LABS: Bacteria,Urine Trace /lpf; Mucus,Urine Trace /lpf
[2024-10-26 22:24] LABS: HIV Combo NEGATIVE (Negative)
[2024-10-26 22:32] LABS: Hepatitis C Ab Qual. W/ RFX NEGATIVE (Negative)
== END 2024-10-26 19:30 | disposition home or self-care (01) ==
PROVIDERS: Physician Assistant; Emergency Provider Emergency Medicine
DX: F12.929 Cannabis use, unspecified with intoxication, unspecified (principal); R07.9 Chest pain, unspecified; R44.8 Other symptoms and signs involving general sensations and perceptions; R68.2 Dry mouth, unspecified
CPT/HCPCS: 71045; 80053; 80307; 81001; 83690; 83735; 83880; 84145; 84436; 84443; 84479; 84484; 85025; 85378; 86803; 87389; 93005; 96361; 96374; 96375; 96376; 99284; J0131; J2405; J7030

== ENCOUNTER 2025-03-28 09:40 | Outpatient (CLI) | payer OTHER, SELFPAY ==
--- OUTSIDE RECORDS SUMMARY | 2024-12-28 05:00 | XMS_ITS ---
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 Med check. * Medical History: Objective: * Vitals: Assessment: Plan: * Treatment: * * Electronic signature of William Patel MD FAAP on 03/28/2025 at 09:44 AM EDT Sign off status: Pending * Provider: Vidal Patel MD Date: 0 12/28/2024 Generated for Printi ng/Faxing/eTransmitting on: 0 03/28/2025 09:44 AM EDT
--- OUTSIDE RECORDS SUMMARY | 2025-01-24 05:00 | XMS_ITS ---
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 Role Phone Huan Patel Primary Care Provider Huan Patel Unavailable Unavailable REASON FOR VISIT check Encounters Encounter Location Date Provider Diagnosis [facility] [address] [address] 01/24/2025 Huan Patel Hypertension, essential I10 ; History of CVA (cerebrovascular accident) without residual deficits Z86.73 ; Type 2 diabetes mellitus with other specified complication E11.69 ; Difficulty concentrating R41.840 and Intermittent palpitations R00.2 Assessments Encounter Date Diagnosis (ICD Code) Assessment Notes Treatment Notes Treatment Clinical Notes Section Notes 01/24/2025 Hypertension, essential (ICD-10 - I10) 01/24/2025 History of CVA (cerebrovascular accident) without residual deficits (ICD-10 - Z86.73) 01/24/2025 Type 2 diabetes mellitus with other specified complication (ICD-10 - E11.69) 01/24/2025 Difficulty concentrating (ICD-10 - R41.840) 01/24/2025 Intermittent palpitations (ICD-10 - R00.2) Plan Of Treatment No Information Progress Notes * Fidel XIEDOB:1980 ( 44 yo M)Acc No.[id number]:01/24/2025 Progress Notes Patient: Fidel BAE Provider: Vidal Patel MD :1980 A ge:44 Y S ex:Male Date:01/24/2025 Address:[address], [id number] Subjective: * Chief Complaints: * 1 . Check. * Medical History: Objective: * Vitals: Assessment: * Assessment: 1. H ypertension, essential - I10 (Primary) 2 . H istory of CVA (cerebrovascular accident) without residual deficits - Z86.73 3 . T ype 2 diabetes mellitus with other specified complication - E11.69 4 . D ifficulty concentrating - R41.840 5 . I ntermittent palpitations - R00.2 Plan: * Treatment: * * Electronic signature of William Patel MD FAAP on 03/28/2025 at 09:44 AM EDT Sign off status: Pending * Provider: Vidal Patel MD Date: 0 01/24/2025 Generated for Danie maria/Jason/eTransmitting on: 0 03/28/2025 09:44 AM EDT
--- OUTSIDE RECORDS SUMMARY | 2025-03-28 05:00 | XMS_ITS ---
Author Organization [facility] Address [address] [place] [address] Care Team Providers Care Society Editor Name Role Phone Huan Patel Primary Care Provider [phone] Huan Patel Unavailable Unavailable Bing Patel Unavailable [phone] Allergies Allergen (clinical drug ingredient) Drug/Non Drug Allergy documented on EMR Reaction Allergy Type Onset Date Status Penicillin Unknown Drug Allergy Active REASON FOR VISIT concrete vibrator fell on his left foot Medications Medication SIG (Take, Route, Frequency, Duration) Notes Start Date End Date Status Lisinopril-hydroCHL OROthiazide 20-25 MG 2 tablets orally once a day; Duration: 30 days Active Loratadine 10 MG 1 tab(s) orally once a day; Duration: 30 days Active OZEMPIC 4 MG/3 ML INJECT 1 MG SUBCUTANEOUSLY EVERY WEEK; Duration: 90 *Please review for potential replacement for e-prescription and drug interaction check* Active Vitamin D3 25 MCG TAKE ONE TABLET BY MOUTH EVERY DAY; Duration: 30 Active metFORMIN HCl 500 MG 1 tab(s) orally 2 times a day; Duration: 90 days Active amLODIPine Besylate 10 MG 1 tab(s) orally once a day Active Aspirin Low Dose 81 MG chew AND swallow 1 tablet BY MOUTH EVERY DAY; Duration: 30 Active Semaglutide 2 MG/3 ML (0.25 MG OR 0.5 MG DOSE) DIRECTED SUBCUTANEOUSLY ONCE A WEEK 2.25mg *Please review and pick correct strength-formulati on from [employer] options. If intended option is not shown, discontinue and re-order from Quick Search* Active Metoprolol Succinate ER 100 MG 1/2 tab orally once a day; Duration: 30 days Active Rosuvastatin Calcium 20 MG 1 tab(s) orally once a day Active Vital Signs Temperature 97.7 degrees Fahrenheit 03/28/20 25 Blood pressure systolic 134 mm Hg 03/28/20 25 Blood pressure diastolic 88 mm Hg 025 Heart Rate 72 /min 03/28/2025 Height 73.6 in 03/28/2025 Weight 324 lbs 03/28/2025 BMI 42.05 kg/m2 03/28/2025 Encounters Encounter Location Date Provider Diagnosis [facility] [address] [place] [address] 03/28/2025 Bing Patel Left foot pain M79.672 and Acute traumatic pain G89.11 Assessments Encounter Date Diagnosis (ICD Code) Assessment Notes Treatment Notes Treatment Clinical Notes Section Notes 03/28/2025 Left foot pain (ICD-10 - M79.672) Rec imaging as noted, CHRISTIANO encouraged. FU based on results. 03/28/2025 Acute traumatic pain (ICD-10 - G89.11) Plan Of Treatment Pending Test Test Name Order Date X ray : Foot, Left 03/28/2025 Next Appt Details Follow Up: prn, Reason: Progress Notes * Fidel XIEDOB:1980 ( 44 yo M)Acc No.[id number]:03/28/2025 Progress Notes Patient: Fidel BAE Provider: DEVEN Leung :1980 A ge:44 Y S ex:Male Date:03/28/2025 Address:[facility] [place], [id number] Pcp:Huan Patel Subjective: * Chief Complaints: * 1 . [place] vibrator fell on his left foot. * HPI: g en: 44-year-old male presents today with complaints of pain in his left foot. Acute onset after he was hit with a concrete vibrator about 5 days ago. Pain has improved but is still significant. Most significant with weightbearing or manipulation. Does improve if he wears his work boots and ties them tightly. Has not really been doing anything in particular for treatment. * ROS: C ONSTITUTIONAL: Reviewed, No Symptoms Reported: Y es. * Medical History: H [place], Low Testosterone, right basal ganglia stroke in June 2018, JEWEL on CPAP. * Medications: T aking amLODIPine Besylate 10 MG Tablet 1 tab(s) orally once a day , Taking Rosuvastatin Calcium 20 MG Tablet 1 tab(s) orally once a day , Taking Semaglutide 2 MG/3 ML (0.25 MG OR 0.5 MG DOSE) SOLUTION DIRECTED SUBCUTANEOUSLY ONCE A WEEK , Notes to Pharmacist: 2.25mg *Please review and pick correct strength-formulation from [facility] options. If intended option is not shown, discontinue and re-order from Quick Search*, Taking Metoprolol Succinate ER 100 MG Tablet Extended Release 24 Hour 1/2 tab orally once a day , Taking Aspirin Low Dose 81 MG Tablet Chewable chew AND swallow 1 tablet BY MOUTH EVERY DAY , Taking metFORMIN HCl 500 MG Tablet 1 tab(s) orally 2 times a day , Taking OZEMPIC 4 MG/3 ML SOLUTION INJECT 1 MG SUBCUTANEOUSLY EVERY WEEK , Notes to Pharmacist: *Please review for potential replacement for e-prescription and drug interaction check*, Taking Vitamin D3 25 MCG Tablet TAKE ONE TABLET BY MOUTH EVERY DAY , Taking Lisinopril-hydroCHLOROthiazide 20-25 MG Tablet 2 tablets orally once a day , Taking Loratadine 10 MG Tablet 1 tab(s) orally once a day , Medication List reviewed and reconciled with the patient * Allergies: P enicillin. Objective: * Vitals: N urse: be, Pain: 6, Temp: 97.7, RR: 18, HR: 72, BP: 134/88, Ht: 73.6, Wt: 324, BMI:42.05. * Examination: G eneral Examination: l eft foot with mild swelling across the mid and forefoot but no discoloration. warm, well perfused, 2+ pedal pulses. Mild tenderness around the lateral malleolus. pain with inversion of the foot and with squeezing the midfoot. Assessment: * Assessment: 1. L eft foot pain - M79.672 (Primary) 2 . A cute traumatic pain - G89.11? Plan: * Treatment: * Clinical Notes: Rec imaging as noted, RICE encouraged. FU based on results. ?? 2.?Acute traumatic pain?Imaging: X ray : Foot, Left* Amanda Bing Villarreal 03/28/2025 09:26:32 AM EDT > weight bearing views please * * Follow Up: p rn * * Sign off status: Completed true * Provider: DEVEN Leung Date: 0 03/28/2025 Generated for Danie maria/Jason/Terri on: 0 03/28/2025 09:44 AM EDT History and Physical Notes * Examination Category Sub-Category Detail Notes Category Not es General Examination left jazmyn t with mild swelling across the mid and forefoot but no discoloration. warm, well perfused, 2+ pedal pulses. Mild tenderness around the lateral malleolus. pain with inversion of the foot and with squeezing the midfoot.
--- OUTSIDE RECORDS SUMMARY | 2025-03-28 09:45 | XMS_ITS | Clinical Summary ---
Author Organization [facility] Address [address] [place] [address] Care Team Providers Care Deck Worker Name Role Phone Manjinder Yoder MD Primary Care Provider [phone] Allergies Active Allergy Reactions Criticality Noted Date Comments Penicillins Unknown - Patient st ates they do not know rxn details Low 07/07/2017 Medications amLODIPine (Norvasc) 5 MG tablet Take 1 tablet (5 mg) by mouth 1 (one) time each day. 02/18/20 23 Active Aspirin Low Dose 81 MG chewable tablet chew AND swallow 1 tablet BY MOUTH EVERY DAY 02/20/20 23 Active atorvastatin (Lipitor) 40 MG tablet Take 1 tablet (40 mg) by mouth 1 (one) time each day. 02/20/20 23 Active buPROPion SR (Wellbutrin SR) 150 MG 12 hr tablet TAKE ONE TABLET BY MOUTH TWICE DAILY 09/14/19 21 Active cholecalcifero l (Vitamin D3) 25 MCG (1000 UT) tablet Take 1 tablet (1,000 Units) by mouth 1 (one) time each day. 02/20/20 23 Active cyanocobalamin (Vitamin B-12) 1000 MCG/ML injection INJECT 1 ML INTRAMUSCULARLY ONCE A WEEK DIRECTED 08/27/19 23 Active FLUoxetine (PROzac) 40 MG capsule TAKE 2 CAPSULES DAILY. 09/09/19 19 Active lisinopril-hyd roCHLOROthiazi de 20-25 MG tablet Take 2 tablets by mouth 1 (one) time each day. 02/20/20 23 Active loratadine (Claritin) 10 MG tablet Take 1 tablet (10 mg) by mouth 1 (one) time each day. 02/20/20 Active metFORMIN (Glucophage) 500 MG tablet Take 1 tablet (500 mg) by mouth 1 (one) time each day. 02/20/20 Active metoprolol succinate XL (Toprol-XL) 100 MG 24 hr tablet Take 1 tablet (100 mg) by mouth 1 (one) time each day. 02/18/20 Active naproxen (Naprosyn) 500 MG tablet TAKE ONE TABLET BY MOUTH TWICE DAILY --TAKE WITH FOOD-- 02/19/20 Active Active Problems Problem Noted Date Diagnosed Date Cerebrovascular accident (CV A) due to stenosis of small artery 03/04/2023 Primary hypertension 03/04/2023 Class 3 severe obesity witho ut serious comorbidity with body mass index (BMI) of 40.0 to 44.9 in adult 03/04/2023 Prediabetes 03/04/2023 Sleep apnea treated with con tinuous positive airway pressure (CPAP) 03/04/2023 Immunizations Immunization Administration Dates Next Due Influenza, injectable, quadrivalent, preservativ e free 07/30/2018 Family History Medical History Relation Name Comments Adopted Other Relation Name Status Comments Other Social History Tobacco Use Types Packs/Day Years Used Date Smoking Tobacco: Light Smoker Smokeless Tobacco: Never Tobacco Cessation:Ready to Q uit: Not Asked; Counseling Given: Not Answered Alcohol Use Standard Drinks/Week Comments Not Currently 0 (1 standard drink = 0.6 oz pure alcohol) Alcoholic Drinks/day: Former consumption of alcohol Sex and Gender Information Value Date Recorded Sex Assigned at Not on file Legal Sex Male 8:53 PM EDT Gender Identity Not on file Sexual Orientation Not on file Last Filed Vital Signs Vital Sign Reading Time Taken Comments Blood Pressure 165/92 03/04/2023 10:56 AM EDT Pulse 71 03/04/2023 10:56 AM EDT Temperature - - Respiratory Rate 17 03/04/2023 10:56 AM EDT Oxygen Saturation 96% 03/04/2023 10:56 AM EDT Inhaled Oxygen Concentration - - Weight 163 kg (360 lb) 03/04/2023 10:56 AM EDT Height 193 cm (6' 4 ) 03/04/2023 10:56 AM EDT Body Mass Index 43.82 03/04/2023 10:56 AM EDT Plan of Treatment Health Maintenance Due Date Last Done Comments [facility]-Depression Screening 1980 [facility]-/Child/Adol SDOH Screenings 1980 [facility]-Varicella Vaccines (1 of 2 - 13+ 2-dose series) 1994 HPV Vaccines (1 - Male 3-dose series) 1996 [facility]- SDOH Screenings 1999 [facility]-Adult SDOH Screenings 1999 [facility]-DTaP,Tdap,and Td Vaccines (1 - Tdap) 2000 [facility]-Hepatitis B Vaccines (1 of 3 - 19+ 3-dose series) 2000 [id number] Vaccine (1 - season) 2024 [facility]-Influenza Vaccine (#1) 04/24/202507/30, 07/08/2010 [facility]-Zoster Vaccines (1 of 2) 2031 [facility]-Diabetes: Hemoglobin A1C Discontinued 07/27/2018 [facility]-HIB Vaccines Aged Out No longer e ligible based on patient's age to complete this topic [facility]-Hepatitis A Vaccines Aged Out No longer eligible based on patient's age to complete this topic [facility]-IPV Vaccines Aged Out No longer e ligible based on patient's age to complete this topic [facility]-Pneumococcal Vaccine: Pediatrics (0 to 5 Years) and At-Risk Patients (6 to 49 Years) Aged Out No longer eligible b ased on patient's age to complete this topic [facility]-Rotavirus Vaccines Aged Out No lo nger eligible based on patient's age to complete this topic Procedures Procedure Name Priority Date/Time Associated Diagnosis Comments HEMOGLOBIN A1C Routine 07/27/2018 2:14 AM EST from Last 3 Months or Most Recently Relevant to Health Maintenance Results * Hemoglobin A1c (07/27/2018 2:14 AM EST) Hemoglobin A1c 5.5 4.7 - 6.0 % [facility]QUEST Comment: Glycohemoglobin Reference Range, 0 years and up: 4.7 to 6.0% . HA1C Interpretive Data: Diagnosis of Diabetes: Diabetic > or = 6.5% Pre-diabetic 5.7 to 6.4% Non-diabetic < or = 5.6% . Glycemic Targets for Type I and Type II Diabetics: Non- Adults <7.0% Adults <6.0% Children and Adolescents <7.5% . Source: [place] [employer]. Standards of medical care in diabetes, 2017. Diabetes Care.2017:40 (suppl 1):S1-S135. . HbA1c assay performed by an ion-exchange chromatography method that is certified traceable to the DCCT. 07/27/2018 2:14 AM EST 07/27/2018 2:33 AM EST us Anamika Hollis MD LAB BLOOD ORDERABLES Final Resu lt [facility]QUEST from Last 3 Months or Most Recently Relevant to Health Maintenance Insurance [facility] MEDICAID Care Teams Deck Worker Relationship Specialty Start Date End Date Manjinder Yoder MD [address] [place] [address] #1 #1 [place] [id number] PCP - General 01/04/21
--- OUTSIDE RECORDS SUMMARY | 2025-03-28 09:45 | XMS_ITS | Patient Health Record ---
Author Organization [facility] Address [address] [place] [address] Care Team Providers Care Health Data Administrator Name Role Phone Huan Patel Primary Care Provider Huan Patel Unavailable Unavailable Bing Patel Unavailable [phone] Migration, Provider Unavailable Unavailable Allergies Allergen (clinical drug ingredient) Drug/Non Drug Allergy documented on EMR Reaction Allergy Type Onset Date Status Penicillin Unknown Drug Allergy Active Results Component Value Reference Range Notes PSA, TOTAL (5314) Reviewed date:05/27/2024 01:38:47 PM Interpretation: Performing Lab:[facility] [address], [place] Bobby Caba Notes/Report: NON-FASTING; NON-FASTING; NON-FASTING; NON-FASTING; NON-FAST PSA, TOTAL 0.28 < OR = 4.00 ng/mL The total PSA value from this assay system is standardized against the WHO standard. The test result will be approximately 20% lower when compared to the equimolar-standardized total PSA (Arianne Kaila). Comparison of serial PSA results should be interpreted with this fact in mind. This test was performed using the Siemens chemiluminescent method. Values obtained from different assay methods cannot be used interchangeably. PSA levels, regardless of value, should not be interpreted as absolute evidence of the presence or absence of disease. VITAMIN B12 (927) Reviewed date:05/27/2024 01:38:47 PM Interpretation: Performing Lab:[facility] [id number], [place]azp[place] Bobby Caba Notes/Report: NON-FASTING; NON-FASTING; NON-FASTING; NON-FASTING; NON-FAST VITAMIN B12 239 403-9509 pg/mL Please Note: Although the reference range for vitamin B12 is 200-1100 pg/mL, it has been reported that between 5 and 10% of patients with values between 200 and 400 pg/mL may experience neuropsychiatric and hematologic abnormalities due to occult B12 deficiency; less than 1% of patients with values above 400 pg/mL will have symptoms. TESTOSTERONE, TOTAL, MALES ( ADULT), IA (873) Reviewed date:05/27/2024 01:38:47 PM Interpretation: Performing Lab:[facility] [address], [place] Bobby Caba Notes/Report: NON-FASTING TESTOSTERONE, TOTAL, MALES (ADULT), IA 336 250-827 ng/dL HEMOGLOBIN A1c (496) Reviewed date:09/19/2024 12:10:10 PM Interpretation: Performing Lab:[facility] [address], [place] SecurityRfxmLH[address] Bobby Caba Notes/Report: NON-FASTING; NON-FASTING; NON-FASTING FASTING:YES FASTING: YES HEMOGLOBIN A1c 5.5 <5.7 % of total Hgb For the purpose of screening for the presence of diabetes: <5.7% Consistent with the absence of diabetes 5.7-6.4% Consistent with increased risk for diabetes (prediabetes) > or =6.5% Consistent with diabetes This assay result is consistent with a decreased risk of diabetes. Currently, no consensus exists regarding use of hemoglobin A1c for diagnosis of diabetes in children. According to [place] Diabetes Association (ADA) guidelines, hemoglobin A1c <7.0% represents optimal control in non- diabetic patients. Different metrics may apply to specific patient populations. Standards of Medical Care in Diabetes(ADA). HEMOGLOBIN A1c (496) Reviewed date:05/27/2024 01:38:47 PM Interpretation: Performing Lab:[facility] [address], [place] SecurityAepiJS[address] Bobby Caba Notes/Report: NON-FASTING; NON-FASTING; NON-FASTING; NON-FASTING; NON-FAST HEMOGLOBIN A1c 5.5 <5.7 % of total Hgb For the purpose of screening for the presence of diabetes: <5.7% Consistent with the absence of diabetes 5.7-6.4% Consistent with increased risk for diabetes (prediabetes) > or =6.5% Consistent with diabetes This assay result is consistent with a decreased risk of diabetes. Currently, no consensus exists regarding use of hemoglobin A1c for diagnosis of diabetes in children. According to [place] Diabetes Association (ADA) guidelines, hemoglobin A1c <7.0% represents optimal control in non- diabetic patients. Different metrics may apply to specific patient populations. Standards of Medical Care in Diabetes(ADA). CBC (INCLUDES DIFF/PLT) (639 9) Reviewed date:05/27/2024 01:38:47 PM Interpretation: Performing Lab:[facility], [facility] [place] [address] [facility], [place] YdisUC[address] Bobby Caba Notes/Report: NON-FASTING; NON-FASTING; NON-FASTING; NON-FASTING; NON-FAST WHITE BLOOD CELL COUNT 6.0 3.8-10.8 Thousand/ uL RED BLOOD CELL COUNT 5.26 4.20-5.80 Million/uL HEMOGLOBIN 15.6 13.2-17.1 g/dL HEMATOCRIT 45.1 38.5-50.0 % MCV 85.7 80.0-100.0 fL MCH 29.7 27.0-33.0 pg MCHC 34.6 32.0-36.0 g/dL For adults, a slight decrease in the calculated MCHC value (in the range of 30 to 32 g/dL) is most likely not clinically significant; however, it should be interpreted with caution in correlation with other red cell parameters and the patient's clinical condition. RDW 12.8 11.0-15.0 % PLATELET COUNT 195 140-400 Thousand/uL MPV 11.4 7.5-12.5 fL ABSOLUTE NEUTROPHILS 3558 4114-2154 cells/uL ABSOLUTE LYMPHOCYTES 4186 090-3650 cells/uL ABSOLUTE MONOCYTES 378 200-950 cells/uL ABSOLUTE EOSINOPHILS 186 15-500 cells/uL ABSOLUTE BASOPHILS 30 0-200 cells/uL NEUTROPHILS 59.3 LYMPHOCYTES 30.8 MONOCYTES 6.3 EOSINOPHILS 3.1 BASOPHILS 0.5 COMPREHENSIVE METABOLIC PANE L (40308) Reviewed date:05/27/2024 01:38:46 PM Interpretation: Performing Lab:[facility], [facility] [address] [facility], [facility] CenterGizhOO[address] Bobby Caba Notes/Report: NON-FASTING; NON-FASTING; NON-FASTING; NON-FASTING; NON-FAST GLUCOSE 117 65-99 mg/dL Fasting reference interval For someone without known diabetes, a glucose value between 100 and 125 mg/dL is consistent with prediabetes and should be confirmed with a follow-up test. UREA NITROGEN (BUN) 15 7-25 mg/dL CREATININE 0.74 0.60-1.29 mg/dL EGFR 116 > OR = 60 mL/min/1.73m2 BUN/CREATININE RATIO SEE NOTE: 02-12 (calc) Not Reported: BUN and Creatinine are within reference range. SODIUM 140 135-146 mmol/L POTASSIUM 3.7 3.5-5.3 mmol/L CHLORIDE 102 98-110 mmol/L CARBON DIOXIDE 29 20-32 mmol/L CALCIUM 9.4 8.6-10.3 mg/dL PROTEIN, TOTAL 7.1 6.1-8.1 g/dL ALBUMIN 4.3 3.6-5.1 g/dL GLOBULIN 2.8 1.9-3.7 g/dL (calc) ALBUMIN/GLOBULIN RATIO 1.5 1.0-2.5 (calc) BILIRUBIN, TOTAL 0.5 0.2-1.2 mg/dL ALKALINE PHOSPHATASE 88 36-130 U/L AST 27 10-40 U/L ALT 42 9-46 U/L COMPREHENSIVE METABOLIC PANE L (16682) Reviewed date:09/19/2024 12:10:10 PM Interpretation: Performing Lab:[facility] [id number] [facility], [facility] CenterYuevWE[address] Bobby Caba Notes/Report: NON-FASTING; NON-FASTING; NON-FASTING FASTING:YES FASTING: YES GLUCOSE 106 65-99 mg/dL Fasting reference interval For someone without known diabetes, a glucose value between 100 and 125 mg/dL is consistent with prediabetes and should be confirmed with a follow-up test. UREA NITROGEN (BUN) 13 7-25 mg/dL CREATININE 0.77 0.60-1.29 mg/dL EGFR 114 > OR = 60 mL/min/1.73m2 BUN/CREATININE RATIO SEE NOTE: 02-12 (calc) Not Reported: BUN and Creatinine are within reference range. SODIUM 140 135-146 mmol/L POTASSIUM 3.7 3.5-5.3 mmol/L CHLORIDE 103 98-110 mmol/L CARBON DIOXIDE 26 20-32 mmol/L CALCIUM 9.7 8.6-10.3 mg/dL PROTEIN, TOTAL 7.5 6.1-8.1 g/dL ALBUMIN 4.7 3.6-5.1 g/dL GLOBULIN 2.8 1.9-3.7 g/dL (calc) ALBUMIN/GLOBULIN RATIO 1.7 1.0-2.5 (calc) BILIRUBIN, TOTAL 0.8 0.2-1.2 mg/dL ALKALINE PHOSPHATASE 91 36-130 U/L AST 23 10-40 U/L ALT 33 9-46 U/L LIPID PANEL, STANDARD (7600) Reviewed date:09/19/2024 12:10:10 PM Interpretation: Performing Lab:[facility], [facility] [id number], [place] Bobby Caba Notes/Report: NON-FASTING; NON-FASTING; NON-FASTING FASTING:YES FASTING: YES CHOLESTEROL, TOTAL 120 <200 mg/dL HDL CHOLESTEROL 45 > OR = 40 mg/dL TRIGLYCERIDES 87 <150 mg/dL LDL-CHOLESTEROL 58 Reference range: <100 Desirable range <100 mg/dL for primary prevention; <70 mg/dL for patients with CHD or diabetic patients with > or = 2 CHD risk factors. LDL-C is now calculated using the Cipriano-Wang calculation, which is a validated novel method providing better accuracy than the Friedewald equation in the estimation of LDL-C. Cipriano SS et al. ABIODUN. 2013;310(19): 1113-1591 (http://education.[employer]eneta.[employer]/faq/PZM201) CHOL/HDLC RATIO 2.7 <5.0 (calc) NON HDL CHOLESTEROL 75 <130 mg/dL (calc) For patients with diabetes plus 1 major ASCVD risk factor, treating to a non-HDL-C goal of <100 mg/dL (LDL-C of <70 mg/dL) is considered a therapeutic option. THYROID PANEL WITH TSH (7444 ) Reviewed date:05/27/2024 01:38:46 PM Interpretation: Performing Lab:[facility], [address] [facility] HospitalKapilSroeBP[address] Bobby Nelda Caba Notes/Report: NON-FASTING; NON-FASTING; NON-FASTING; NON-FASTING; NON-FAST T3 UPTAKE 28 22-35 % T4 (THYROXINE), TOTAL 7.9 4.9-10.5 mcg/dL FREE T4 INDEX (T7) 2.2 1.4-3.8 TSH 1.65 0.40-4.50 mIU/L Rapid Covid/Flu A-B Combo Reviewed date:05/21/2024 01:13:05 PM Interpretation: Performing Lab: Notes/Report: Rapid Covid neg Flu A neg Flu B neg Reason For Referral Reason Please contact Bibi [facility] to see about updating his end-of-life CPAP machine and equipment. Diagnosis 1 Obstructive sleep ap shazia (adult) (pediatric) (G47.33) Referral Organization [facility] Referring Provider First Name Huan Referring Provider Last Name Jorge Referring Provider Speciality Internal M edicine Referred Provider Specialty DME General Notes Josephine Mcelroy 2024 04:27:39 PM >I cannot locate his sleep study results. Checked with [facility] and nothing on file. Had it done through [employer] which I believe is no longer around., Josephine Mcelroy 09/16/2024 10:17:59 AM >They had it so sent script through [facility]. Referral Priority Routine Medications Medication SIG (Take, Route, Frequency, Duration) Notes Start Date End Date Status amLODIPine Besylate 10 MG 1 tab(s) orally once a day Active Lisinopril-hydroCHL OROthiazide 20-25 MG 2 tablets orally [...] BY MOUTH EVERY DAY; Duration: 30 Active Aspirin Low Dose 81 MG chew AND swallow 1 tablet BY MOUTH EVERY DAY; Duration: 30 Active metFORMIN HCl 500 MG 1 tab(s) orally 2 times a day; Duration: 90 days Active Semaglutide 2 MG/3 ML (0.25 MG OR 0.5 MG DOSE) DIRECTED SUBCUTANEOUSLY ONCE A WEEK 2.25mg *Please review and pick correct strength-formulati on from [employer] options. If intended option is not shown, discontinue and re-order from Quick Search* Active Metoprolol Succinate ER 100 MG 1/2 tab orally once a day; Duration: 30 days Active Rosuvastatin Calcium 20 MG 1 tab(s) orally once a day Active Social History Tobacco Use: Social History Observation Description Date Details (start date - stop date) Former Smoker NA - NA Smoking: Question Answer Notes Are you a: former smoker How long has it been since you last smoked? 6-12 months Problems Problem Type SNOMED Code ICD Code Onset Dates Problem Status W/U Status Risk Notes Problem Type 2 diabetes mellitus with other specified complication (E11.69) Active confirmed Problem Generalized anxiety disorder (11583513) Generalized anxiety disorder (F41.1) Active confirmed Problem Obstructive sleep apnea syndrome (disorder) (51416434) Obstructive sleep apnea (adult) (pediatric) (G47.33) Active confirmed Problem Seasonal allergic rhinitis (582278729) Other seasonal allergic rhinitis (J30.2) Active confirmed Problem Allergic rhinitis (05236662) Other allergic rhinitis (J30.89) Active confirmed Problem Dependence on enabling machine or device (495091437) Dependence on other enabling machines and devices (Z99.89) Active confirmed Problem Vitamin D deficiency (54629304) Vitamin D deficiency (E55.9) Active confirmed Problem Morbid obesity (459632286) Morbid obesity (E66.01) Active confirmed Problem Essential hypertension (88092630) Hypertension, essential (I10) Active confirmed Problem Androgen deficiency (59099169) Androgen deficiency (E29.1) Active confirmed Problem Obesity (551139259) Obesity, unspecified (E66.9) Active confirmed Problem Skin sensation disturbance (55937817) Paresthesia of both feet (R20.2) Active confirmed Problem Body mass index 40+ - severely obese (317651218) Body mass index (BMI) of 40.0-44.9 in adult (Z68.41) Active confirmed Problem Muscle spasm (72012666) Muscle spasm (M62.838) Active confirmed Problem Daytime somnolence (822547520484) Daytime somnolence (R40.0) Active confirmed Problem Bilateral arthritis of knees (4971382139408111) Primary osteoarthritis of knees, bilateral (M17.0) Active confirmed Problem Hypertensive urgency (595874182) Hypertensive urgency (I16.0) Active confirmed Problem Carpal tunnel syndrome (98701992) Carpal tunnel syndrome on both sides (G56.03) Active confirmed Problem Fatigue (01721938) Fatigue, unspecified type (R53.83) Active confirmed Problem Prediabetes (387159592) Pre-diabetes (R73.03) Active confirmed Problem Serum vitamin B12 low (651715676) Low vitamin B12 level (E53.8) Active confirmed Problem Late effects of cerebrovascular disease (048576170) History of CVA with residual deficit (I69.30) Active confirmed Problem History of cerebrovascular accident without residual deficits (981645416) History of CVA (cerebrovascular accident) without residual deficits (Z86.73) Active confirmed Problem Hemiplegia of nondominant side as late effect of cerebrovascular disease (978336539) Hemiparesis affecting left side as late effect of stroke (I69.354) Active confirmed Problem Cerebral infarction (118290741) Stroke of right basal ganglia (I63.9) Active confirmed Problem Cardiomegaly (9320890) LVH (left ventricular hypertrophy) (I51.7) Active confirmed Problem Unable to concentrate (finding) (09844614) Difficulty concentrating (R41.840) Active confirmed Vital Signs Heart Rate 72 /min 03/28/2025 Temperature 97.7 degrees Fahrenheit 03/28/2025 Blood pressure diastolic 88 mm Hg 03/28/2025 Height 73.6 in 03/28/2025 Blood pressure systolic 134 mm Hg 03/28/2025 Weight 324 lbs 03/28/2025 BMI 42.05 kg/m2 03/28/2025 Encounters Encounter Location Date Provider Diagnosis [facility] [address] [place] [address] 11/26/2024 Provider Migration Type 2 diabetes mellitus with other specified complication E11.69 [facility] [address] [place] [address] 05/21/2024 Huan Patel Acute cough R05.1 [facility] [address] [place] [address] 05/25/2024 Huan Patel Type 2 diabetes mellitus with other specified complication E11.69 ; Low vitamin B12 level E53.8 ; History of CVA (cerebrovascular accident) without residual deficits Z86.73 ; Morbid obesity E66.01 ; Androgen deficiency E29.1 ; Hypertension, essential I10 ; Obstructive sleep apnea (adult) (pediatric) G47.33 and Routine medical exam Z00.00 [facility] [address] [facility] [address] [place] [address] 06/29/2024 Huan Besson Hypertension, essential I10 ; Obstructive sleep apnea (adult) (pediatric) G47.33 ; Type 2 diabetes mellitus with other specified complication E11.69 and Difficulty concentrating R41.840 [facility] [place] [address] [address] 09/15/2024 Huan Besson Hypertension, essential I10 ; Obstructive sleep apnea (adult) (pediatric) G47.33 ; Type 2 diabetes mellitus with other specified complication E11.69 ; Difficulty concentrating R41.840 and Palpitations R00.2 [facility] [address] [facility] [address] [place] [address] 03/28/2025 Bing Patel Left foot pain M79.672 and Acute traumatic pain G89.11 [facility] [address] [facility] [address] [place] [address] 09/15/2024 Huan Besson [facility] [address] [facility] [address] [place] [address] 10/26/2024 Bing Guzmanence [facility] [address] [facility] [address] [place] [address] 11/01/2024 Bing Patel Assessments Encounter Date Diagnosis (ICD Code) Assessment Notes Treatment Notes Treatment Clinical Notes Section Notes 05/21/2024 Acute cough (ICD-10 - R05.1) 05/25/2024 Type 2 diabetes mellitus with other specified complication (ICD-10 - E11.69) - last A1c 6.5 07/2022 - currently on ozempic, was getting at weight loss pharmacy PLAN - start ozempic 1 mg - restart metformin - repeat A1c today 05/25/2024 Low vitamin B12 level (ICD-10 - E53.8) - was prior on B12 replacement, however it has been several years - repeat today 06/29/2024 Obstructive sleep apnea (adult) (pediatric) (ICD-10 - G47.33) - chronic, has CPAP at home but has not been able to use recently as caring for new children and sleeping on couch - encouraged remembering to prioritizing his health in order to improve his overall family's health - encouraged starting to use CPAP again and patient agreeable, follow up on use in 2 months 06/29/2024 Hypertension, essential (ICD-10 - I10) - BP 138/92 in office today, does not routinely check at home - improved from prior, denies chest pain, shortness of breath, dizziness, or lightheadedness - continue current regimen at this time - encouraged use of CPAP nightly as patient has not been using as of recent due to helping with children late at night - follow up repeat BP measurement in 2 months 09/15/2024 Obstructive sleep apnea (adult) (pediatric) (ICD-10 - G47.33) Chronic. Patient reports not regularly using CPAP machine at home due to musky smell coming from the machine. He has tried cleaning the machine, but has had no success. Will contact his medical equipment company for a new machine. Patient would drastically benefit from restarting CPAP. Given the age of the machine patient needs this replaced. Please note the patient has benefited from use of the machine He felt better when he was using it, a lot of issues including new babies at home have prevented him from trying it, he thinks he is able to try it again 09/15/2024 Hypertension, essential (ICD-10 - I10) Chronic. 145/90 in office today. Patient currently on amlodipine, metoprolol, HCTZ-lisinopril. Not monitoring BP at home. Encouraged use of CPAP at night. 11/26/2024 Type 2 diabetes mellitus with other specified complication (ICD-10 - E11.69) 03/28/2025 Left foot pain (ICD-10 - M79.672) Rec imaging as noted, CHRISTIANO encouraged. FU based on results. 03/28/2025 Acute traumatic pain (ICD-10 - G89.11) 09/15/2024 Type 2 diabetes mellitus with other specified complication (ICD-10 - E11.69) Most recent A1C was 5.5. Patient is on Ozempic and metformin. Reports no GI side effects from medications. Continue current regimen. Will redraw A1C. Will review labs personally. 05/25/2024 History of CVA (cerebrovascular accident) without residual deficits (ICD-10 - Z86.73) - discussed importance of management of risk factors including JEWEL, HTN, HLD - on crestor, norvasc, metoprolol, lisinopril-hctz, aspirin - cont current regimen - discussed importance of CPAP compliance 06/29/2024 Type 2 diabetes mellitus with other specified complication (ICD-10 - E11.69) - Hgb A1c 5.5% in 05/2024 - chronic, well controlled - continue 1 mg Ozempic weekly at this time as having benefit, tolerating well - encouraged diet, exercise, lifestyle modifications 05/25/2024 Morbid obesity (ICD-10 - E66.01) - start ozempic at 1 as above 06/29/2024 Difficulty concentrating (ICD-10 - R41.840) - endorses several years of difficulty concentrating, has recently noticed issues with concentration, 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 Due to his history of hypertension and stroke, I do not recommend stimulants. Recommended beginning N-acetylcysteine and thiamine over the counter. Patient was agreeable. 09/15/2024 Palpitations (ICD-10 - R00.2) Patient reports intermittent palpitations for several weeks now. He has not been able to identify triggers. He denies chest pain and shortness of breath during these episodes. EKG performed in office showed NSR. At this time, I have little concern. If palpitations continue, I will start the patient on a heart monitor. 05/25/2024 Androgen deficiency (ICD-10 - E29.1) - was noted to have low T at weight loss clinic - could explain urinary problems, however this could also be related to BPH as well. Denies fevers, pain/problems with ejaculation. Denies frequency, dysuria. Endorses urgency, weak urinary stream. PLAN - repeat testosterone - follow up 4 weeks, can consider prostate exam as BPH and chronic bacterial prostatis not excluded 05/25/2024 Hypertension, essential (ICD-10 - I10) - BP today 160/94, did take meds today, but says he was out running around - patient on norvasc, lisinopril-hctz and metoprolol, endorses good compliance - however does have JEWEL for which he does not wear cpap at this time, also continued weight loss will be beneficial for BP PLAN - cont medication regiment - will resend ozempic which will aid in weight loss - follow up in 4 weeks 05/25/2024 Obstructive sleep apnea (adult) (pediatric) (ICD-10 - G47.33) - has not been wearing his CPAP ever since he has had new kids he fostered - encouraged patient to be as compliant as able, especially considering he had stroke and untreated JEWEL has detrimental prison effects 05/25/2024 Routine medical exam (ICD-10 - Z00.00) See notes above re: preventative care issues. Patient not in range for colonoscopy. Non-smoker. See other issues above regarding his blood pressure issues. Wears seatbelt. Good family support 09/15/2024 Other Routine labs as ordered. Will personally review labs. Follow-up in 3 months Plan Of Treatment Pending Test Test Name Order Date X ray : Foot, Left 03/28/2025 Sleep Study 12/24/2018 EKG : In House 10/29/2020 Physical Therapy 08/31/2018 Physical Therapy 07/28/2019 Physical Therapy 12/16/2019 Physical Therapy 12/20/2019 Physical Therapy 10/08/2021 Occupational Therapy : Eval & Treatment 07/28/2019 Occupational Therapy : Eval & Treatment 08/31/2018 M-Complete Blood Count Auto Diff 021 M-Complete Blood Count Auto Diff 019 M-Comprehensive Metabolic Panel 07/07/20 18 M-Comprehensive Metabolic Panel 10/23/19 19 M-Comprehensive Metabolic Panel 08/22/20 21 M-Hemoglobin A1C 08/22/2021 M-Hemoglobin A1C 07/07/2018 M-Lipid Panel 10/22/2018 M-Lipid Panel 07/07/2018 M-Lipid Panel 08/22/2021 M-Thyroid Panel 07/07/2018 M-Thyroid Stimulating Hormone 08/22/2021 M-Vitamin B12 10/22/2018 M-Vitamin B12 08/22/2021 M-Vitamin D 25 Hydroxy 10/22/2018 M-Testosterone 07/07/2018 M-COVID PCR SINGLE RAPID 09/11/2021 TESTOSTERONE, TOTAL, [place] ([id number]) 2023 Insurance Providers Payer Name Payer Address Payer Phone Subscriber Number Group Number Insured Name Patient Relationship to Insured Coverage Start Date Coverage End Date [employer] [facility] [address] [address] [place] [address] [id number] Fidel Xie Self - patient is the insured Medications Administered Medication Instructions Date of Administration Dosage Notes Triamcinolone Acetonide 40mg Injection 05/01/2020 1 mL Medical (General) History Medical History History ICD Code HTN Low Testosterone right basal ganglia stroke in June 25 018 JEWEL on CPAP Surgical History Surgery Date(Month/Year) vasectomy 10/2018 Hospitalization History Reason Date(Month/Year) [facility] 07/2018 elevated b/p 2017
--- NOTE | 2025-03-28 09:50 | XR_ITS ---
FINAL REPORT CLINICAL HISTORY: LEFT DFOOT PAIN ACUTE TRAUMATIC PAIN COMPARISON: None FINDINGS: LEFT FOOT Three views of the left foot demonstrate a moderate plantar spur. There are mild hypertrophic changes of the 1st MTP joint. Ossific density at the medial base of the 5th proximal phalanx measuring 6 mm likely represents a mildly displaced fracture with intra-articular extension. This is age indeterminate, correlate with site of pain. The soft tissues are unremarkable. IMPRESSION: Possible fracture 5th proximal phalanx as above. Correlate with site of pain. Reviewed, Interpreted and Dictated by Mo Beasley MD Transcribed by Gina Rashid Authenticated and [facility]
== END 2025-03-28 23:59 | disposition home or self-care (01) ==
PROVIDERS: PCP Nurse Practitioner Family; Visit Provider Nurse Practitioner Family
DX: M79.672 Pain in left foot (principal); G89.11 Acute pain due to trauma; M77.32 Calcaneal spur, left foot; R93.6 Abnormal findings on diagnostic imaging of limbs
CPT/HCPCS: 73630